=== PATIENT | female | born 1950 | race Hispanic/Latino ===

== ENCOUNTER 2019-05-06 17:30 | Emergency (ER) | payer OTHER, MEDICARE ==
[2019-05-06 18:03] LABS: BASOPHILS % (AUTO) 0.9 % (0.0-5.0); EOSINOPHILS % (AUTO) 2.1 % (0.0-8.0); HEMATOCRIT 39.6 % (36-48); LYMPHOCYTES % (AUTO) 37.2 % (21.0-51.0); MEAN CORPUSCULAR HEMOGLOBIN 28.8 pg (27.0-33.0); MEAN CORPUSCULAR HGB CONC 32.8 g/dL (32.0-36.0); MEAN CORPUSCULAR VOLUME 87.8 fL (79-99); MONOCYTES % (AUTO) 5.6 % (3.0-13.0); NEUTROPHILS % (AUTO) 53.9 % (40.0-77.0); PLATELET COUNT (AUTO) 287 K/uL (130-400); RED BLOOD CELL COUNT(AUTO) 4.51 MIL/uL (4.00-5.50); RED CELL DISTRIBUTION WIDTH 12.6 % (11.0-15.5); WHITE BLOOD COUNT (AUTO) 7.5 K/uL (4.8-10.8)
[2019-05-06 18:16] LABS: CREATININE 0.7 mg/dL (0.5-1.5); POTASSIUM 3.8 mmol/L (3.5-5.1)
[2019-05-06 18:21] LABS: BILIRUBIN,TOTAL 0.3 mg/dL (0.2-1.0); TOTAL PROTEIN, SERUM 8.8 g/dL (6.0-8.3)
[2019-05-06 21:21] LABS: INR 0.92 (0.85-1.15); PARTIAL THROMBOPLASTIN TIME 29.3 SEC (26.3-35.5)
[2019-05-06] MEDS ORDERED: CEFTRIAXONE SODIUM 1 GM ONE (21:50)
[2019-05-06 21:55] LABS: APPEARANCE,URINE Clear (CLEAR); BILIRUBIN,URINE Negative (NEGATIVE); COLOR,URINE Yellow (YELLOW); GLUCOSE, URINE (UA) Negative (NEGATIVE); KETONES,URINE Negative (NEGATIVE); LEUKOCYTE ESTERASE ,URINE Trace (NEGATIVE); NITRATE,URINE Negative (NEGATIVE); OCCULT BLOOD,URINE Negative (NEGATIVE); PH,URINE 8.5 (5.0-8.0); PROTEIN,URINE Negative (NEGATIVE); UROBILINOGEN,URINE 0.2 mg/dL (0.2-1.0)
[2019-05-06 22:04] LABS: BACTERIA,URINE Rare /HPF (None Seen); RBC,URINE 0-1 /HPF (0-1); SQUAMOUS EPITHELIAL CELL,UR Rare /HPF (0-2)
== END 2019-05-06 22:44 | disposition home or self-care (01) ==
LOC: EDH 17:30
DX: L03.113 Cellulitis of right upper limb (principal); I10 Essential (primary) hypertension; G20 Parkinson's disease; E78.00 Pure hypercholesterolemia, unspecified
CPT/HCPCS: 36415; 71045; 80053; 81001; 82550; 82948; 83880; 84443; 84484; 85025; 85610; 85730; 93005; 96374; 99285; J0696

== ENCOUNTER 2019-06-15 11:34 | Inpatient (IN) | payer OTHER, MEDICARE ==
[~2019-06-15] VITALS: Ht 157.5 cm; Wt 68.0 kg
[2019-06-15 11:57] LABS: BASOPHILS % (AUTO) 0.9 % (0.0-5.0); EOSINOPHILS % (AUTO) 1.3 % (0.0-8.0); HEMATOCRIT 37.8 % (36-48); MEAN CORPUSCULAR HEMOGLOBIN 29.1 pg (27.0-33.0); MEAN CORPUSCULAR HGB CONC 33.3 g/dL (32.0-36.0); MEAN CORPUSCULAR VOLUME 87.3 fL (79-99); MONOCYTES % (AUTO) 5.2 % (3.0-13.0); NEUTROPHILS % (AUTO) 63.5 % (40.0-77.0); PLATELET COUNT (AUTO) 286 K/uL (130-400); RED BLOOD CELL COUNT(AUTO) 4.33 MIL/uL (4.00-5.50); RED CELL DISTRIBUTION WIDTH 12.6 % (11.0-15.5); WHITE BLOOD COUNT (AUTO) 6.8 K/uL (4.8-10.8)
[2019-06-15 12:19] LABS: CREATININE 0.6 mg/dL (0.5-1.5); POTASSIUM 3.9 mmol/L (3.5-5.1)
[2019-06-15 12:24] LABS: ALBUMIN 3.9 g/dL (3.5-5.0); BILIRUBIN,TOTAL 0.2 mg/dL (0.2-1.0); TOTAL PROTEIN, SERUM 8.1 g/dL (6.0-8.3)
[2019-06-15 13:34] LABS: APPEARANCE,URINE Clear (CLEAR); BILIRUBIN,URINE Negative (NEGATIVE); COLOR,URINE Yellow (YELLOW); GLUCOSE, URINE (UA) Negative (NEGATIVE); KETONES,URINE Negative (NEGATIVE); LEUKOCYTE ESTERASE ,URINE Trace (NEGATIVE); NITRATE,URINE Negative (NEGATIVE); OCCULT BLOOD,URINE Negative (NEGATIVE); PROTEIN,URINE Negative (NEGATIVE)
[2019-06-15 13:54] LABS: BACTERIA,URINE Few /HPF (None Seen); SQUAMOUS EPITHELIAL CELL,UR Few /HPF (0-2); WBC,URINE 0-1 /HPF (0-1)
[2019-06-15] MEDS ORDERED: ASPIRIN 81MG TAB.CHEW PO SCH (15:00)
[2019-06-15] MEDS: ATORVASTATIN CALCIUM 20 MG TABLET PO SCH (15:00)
[2019-06-15] MEDS ORDERED: NITROGLYCERIN 0.4 MG SL TAB SL PRN (15:15)
[2019-06-15] MEDS ORDERED: ACETAMINOPHEN 325 MG TAB PO PRN (15:15)
[2019-06-15] MEDS ORDERED: ONDANSETRON HCL 4 MG/2 ML VIAL IV PRN (15:15)
[2019-06-15] MEDS ORDERED: ASPIRIN 81MG TAB.CHEW ONE (15:56)
[2019-06-15 16:04] LABS: THYROID STIMULATING HORMONE 0.99 uIU/mL (0.36-3.74)
[2019-06-15] MEDS ORDERED: IOHEXOL-350 75 ML VIAL IV ONE (16:11)
[2019-06-15 16:55] VITALS: BP 160/75
[2019-06-15 19:53] VITALS: BP 152/64
[2019-06-15] MEDS: ATORVASTATIN CALCIUM 40 MG TABLET PO SCH (20:17)
[2019-06-15] MEDS: FAMOTIDINE/PF 20 MG/2 ML VIAL IV SCH (20:17)
[2019-06-15 23:40] VITALS: BP 127/54
[2019-06-16 03:57] VITALS: BP 157/74
[2019-06-16 04:12] LABS: BASOPHILS % (AUTO) 0.9 % (0.0-5.0); EOSINOPHILS % (AUTO) 2.6 % (0.0-8.0); HEMATOCRIT 34.8 % (36-48); LYMPHOCYTES % (AUTO) 36.3 % (21.0-51.0); MEAN CORPUSCULAR HEMOGLOBIN 28.6 pg (27.0-33.0); MEAN CORPUSCULAR HGB CONC 32.8 g/dL (32.0-36.0); MEAN CORPUSCULAR VOLUME 87.2 fL (79-99); MONOCYTES % (AUTO) 6.6 % (3.0-13.0); NEUTROPHILS % (AUTO) 53.4 % (40.0-77.0); PLATELET COUNT (AUTO) 275 K/uL (130-400); RED BLOOD CELL COUNT(AUTO) 3.99 MIL/uL (4.00-5.50); RED CELL DISTRIBUTION WIDTH 12.6 % (11.0-15.5); WHITE BLOOD COUNT (AUTO) 5.5 K/uL (4.8-10.8)
[2019-06-16 04:35] LABS: ALBUMIN 3.3 g/dL (3.5-5.0); BILIRUBIN,TOTAL 0.4 mg/dL (0.2-1.0); CREATININE 0.6 mg/dL (0.5-1.5); POTASSIUM 3.5 mmol/L (3.5-5.1); TOTAL PROTEIN, SERUM 7.1 g/dL (6.0-8.3)
--- NOTE | 2019-06-16 05:11 | NUR ---
PAGED [phone]: hospitalist paged at this time by community engagement specialist. pending call back 0510: Hospitalist FINAL OPERATIONS TECHNICIAN, AJ, returned called. informed of potassium-3.5. TO to initiate hypokalemia protocol.
[2019-06-16] MEDS ORDERED: POTASSIUM CHLORIDE 20 MEQ ERTAB PO PRN (05:15)
[2019-06-16] MEDS ORDERED: POTASSIUM CHLORIDE 20MEQ/100ML 100 ML IV PRN (05:15)
[2019-06-16] MEDS ORDERED: LIDOCAINE HCL-MPF 1% 2ML VIAL IV PRN (05:15)
[2019-06-16] MEDS: POTASSIUM CHLORIDE 10% ELIXIR 20 MEQ/15 ML UDCUP PO PRN ×2 (05:39→17:02)
[2019-06-16 08:00] VITALS: BP 147/66
[2019-06-16] MEDS: FAMOTIDINE/PF 20 MG/2 ML VIAL IV SCH ×2 (08:50→20:48)
[2019-06-16] MEDS: ASPIRIN 81MG TAB.CHEW PO SCH (08:50)
--- NOTE | 2019-06-16 10:15 | NUR ---
NEURO CONSULT DR SULLIVAN ROUNDED ON PATIENT ORDERED PLACED FOR ROPINIROLE 0.25 PO BID, AND LUMBER SPINE WITH CONTRAST.
[2019-06-16] MEDS: ATORVASTATIN CALCIUM 20 MG TABLET PO SCH (10:39)
[2019-06-16] MEDS: ROPINIROLE HCL 0.25 MG TABLET PO SCH ×2 (11:05→20:48)
--- NOTE | 2019-06-16 11:30 | NUR ---
PATIENT BACK FROM MRI OF LUMBAR SPINE .
[2019-06-16 11:39] VITALS: BP 149/68
--- NOTE | 2019-06-16 11:45 | NUR ---
DYSPHAGIA EVAL COMPLETED. NO S/S OF ASPIRATION. RECOMMEND MECHANICAL SOFT/CHOPPED, THIN LIQUIDS, PILLS WHOLE WITH LIQUIDS. COMPUTER SECURITY COORDINATOR COORDINATED WITH NURSE RENDON. Pt WAS EDUCATED ON RISKS AND CONSEQUENCES OF ASPIRATION. ALL QUESTIONS ANSWERED AT THIS TIME. Addendum: 06/16/[address] AISHA SIEGEL Amended: Links added.
[2019-06-16 16:00] VITALS: BP 135/62
--- NOTE | 2019-06-16 16:42 | NUR ---
SPOKE W PATIENT ON THE PHONE STATES LIVES ALONE, HAS PROVIDER SERVICES 4 HRS DAILY- HOME SAFE AND ACCESSIBLE, USES ROLLING WALKER, SHOWER CHAIR- FELL 6 MONTHS AGO BUT IS VERY CAREFUL SON [place]IVES [place] AND [place] TRANSPORTATION; DCP IS HOME- DISCUSSED THERAPY PER HH- LAST VISIT TO PRIMARY MD ROSEMARY ROSAS ; WILL NEED TO RETRUN- CAN SEND INFO ON DISCHARGE OT PMD TO SET UP WITH HH /PT IF REQUIRED. VERBALIZED UNDERSTANDING Addendum: 06/16/19 at 1646 by MANUEL CADET RN CM Amended: Links added.
[2019-06-16] MEDS ORDERED: CARB1TAB42 PO (17:16)
[2019-06-16] MEDS ORDERED: ROSU10TA28 PO (17:16)
[2019-06-16] MEDS ORDERED: LISI-613 PO (17:16)
[2019-06-16 20:38] VITALS: BP 135/62
[2019-06-16] MEDS: ATORVASTATIN CALCIUM 40 MG TABLET PO SCH (20:48)
--- NOTE | 2019-06-16 20:50 | NUR ---
MEDS PT JUST HAD A SHOWER, TOLERATED ACTIVITY WELL. SHIFT ASSESSMENT DONE, PLEASE REFER TO CHART. DUE MEDS ADMINISTERED, TOLERATED WELL. KEPT RESTED AND COMFORTABLE IN BED. SCD'S RE-APPLIED TO BLE. CALL LIGHT WITHIN REACH. ENCOURAGED TO REST AND SLEEP. Addendum: 06/16/19 at 2345 by EMERALD AGRAWAL RN RN Amended: Links added.
[2019-06-16 23:28] VITALS: BP 140/61
--- NOTE | 2019-06-17 02:00 | NUR ---
ROUNDS PT RESTING WELL, FAIRLY ASLEEP. NO DISTRESS NOTED. KEPT UNDISTURBED FOR NOW. WILL MONITOR PT. CALL LIGHT WITHIN REACH. BED ALARM KEPT ON.
[2019-06-17 04:00] VITALS: BP 147/52
[2019-06-17 04:47] LABS: BASOPHILS % (AUTO) 0.7 % (0.0-5.0); EOSINOPHILS % (AUTO) 2.4 % (0.0-8.0); HEMATOCRIT 35.9 % (36-48); LYMPHOCYTES % (AUTO) 33.5 % (21.0-51.0); MEAN CORPUSCULAR HEMOGLOBIN 28.4 pg (27.0-33.0); MEAN CORPUSCULAR VOLUME 88.6 fL (79-99); MONOCYTES % (AUTO) 6.5 % (3.0-13.0); NEUTROPHILS % (AUTO) 56.5 % (40.0-77.0); PLATELET COUNT (AUTO) 256 K/uL (130-400); RED BLOOD CELL COUNT(AUTO) 4.05 MIL/uL (4.00-5.50); RED CELL DISTRIBUTION WIDTH 12.6 % (11.0-15.5); WHITE BLOOD COUNT (AUTO) 5.5 K/uL (4.8-10.8)
[2019-06-17 05:09] LABS: ALBUMIN 3.5 g/dL (3.5-5.0); BILIRUBIN,TOTAL 0.4 mg/dL (0.2-1.0); CREATININE 0.7 mg/dL (0.5-1.5); POTASSIUM 4.2 mmol/L (3.5-5.1); TOTAL PROTEIN, SERUM 7.3 g/dL (6.0-8.3)
--- NOTE | 2019-06-17 06:00 | NUR ---
ROUNDS PT RESTING WELL, NO DISTRESS NOTED.NO COMPLAINTS VERBALIZED. KEPT RESTED AND COMFORTABLE IN BED. CALL LIGHT WITHIN REACH. FOR MORE CARE.
[2019-06-17 07:25] VITALS: BP 132/55
[2019-06-17] MEDS: ATORVASTATIN CALCIUM 20 MG TABLET PO SCH (07:35)
[2019-06-17] MEDS: ROPINIROLE HCL 0.25 MG TABLET PO SCH (09:44)
[2019-06-17] MEDS: FAMOTIDINE/PF 20 MG/2 ML VIAL IV SCH (09:44)
[2019-06-17] MEDS: ASPIRIN 81MG TAB.CHEW PO SCH (09:45)
--- NOTE | 2019-06-17 09:47 | NUR ---
DR NATE SULLIVAN ROUNDED ON PATIENT ,NO NEW ORDERS RECEIVED , PATIENT CLEAR FROM HIS SERVICE FOR DISCHARGE AND FOLLOW-UP WITH HIM IN 2-4 WEEKS
[2019-06-17 10:44] VITALS: BP 122/66
--- NOTE | 2019-06-17 11:40 | NUR ---
FOLLOW UP COMPLETED. CUSHION PADDER COORDINATED WITH NURSE JUSTICE. Pt CURRENTLY TOLERATING DIET RECOMMENDATION WITH NO S/S OF ASPIRATION. Addendum: 06/17/[address] ROBBIN Amended: Links added.
--- NOTE | 2019-06-17 15:27 | NUR ---
FOLLOW UP APPOINTMENT WITH DR. RILEY SUNDAY 4 PM SET UP PER NICK SPOKE TO PATIENT AT LENGTH ABOUT BEING COMPLIANT WITH MEDS. WILL SEND ALL INFO TO DR. RILEY RE FINDINGS AND PT NOTES , FOR POSSIBLE DC TODAY Addendum: 06/17/19 at 1530 by MANUEL CADET RN CM Amended: Links added.
[2019-06-17 15:46] VITALS: BP 151/78
[2019-06-17] MEDS ORDERED: ATOR40TA69 PO (17:29)
[2019-06-17] MEDS ORDERED: ROPI0.257 PO (17:29)
[2019-06-17] MEDS ORDERED: ASPI-1005 PO (17:32)
--- NOTE | 2019-06-17 20:00 | NUR ---
PATIENT GIVEN DISCHARGE INSTRUCTIONS AND VERBALIZED UNDERSTANDING , MONITORING UNIT NOTIFIED AND TELEMETRY UNIT REMOVED , IV REMOVED WITH CATHETER INTACT AND SITE DRESSED, REVIEWED MEDICATIONS AND FOLLOW-UP APPOINTMENT, PATIENT DENIES PAIN AND NO QUESTIONS OR CONCERNS VOICED AT THIS TIME . PATIENT BELONGINGS GATHER AND PATIENT HAD CALLED SON. SON WAITING DOWNSTAIRS OUTSIDE ER. PATIENT TAKING BY WHEELCHAIR TO ER AREA TO LEAVE WITH SON FOR HOME.
== END 2019-06-17 19:30 | disposition home or self-care (01) | DRG 948 ==
LOC: EDH 11:34 → EDHIP 15:06 → 4BH 16:48
PROVIDERS: ADMIT Internal Medicine; ATTEND Internal Medicine
DX: R53.1 Weakness (principal); G20 Parkinson's disease; E11.9 Type 2 diabetes mellitus without complications; I10 Essential (primary) hypertension; E78.5 Hyperlipidemia, unspecified; R53.81 Other malaise; M48.00 Spinal stenosis, site unspecified; Z91.81 History of falling; Z90.710 Acquired absence of both cervix and uterus; Z91.14 Patient's other noncompliance with medication regimen; Z91.19 Patient's noncompliance with other medical treatment and regimen
CPT/HCPCS: 36415; 70450; 70496; 70498; 70551; 72148; 80053; 80061; 81001; 82948; 83036; 84443; 85025; 92610; 93005; 93356; 97039; C8929; G0378; J3490; Q9967

== ENCOUNTER 2019-11-27 18:22 | Emergency (ER) | payer OTHER, MEDICARE ==
[~2019-11-27 18:22] MED LIST: ASPI-1005 PO; ATOR40TA69 PO; LISI-613 PO; ROPI0.257 PO
[2019-11-27] MEDS ORDERED: SODIUM CHLORIDE 0.9% 1000ML 1,000 ML IV ONE (18:23)
[2019-11-27 19:02] LABS: BASOPHILS % (AUTO) 0.9 % (0.0-5.0); EOSINOPHILS % (AUTO) 2.6 % (0.0-8.0); HEMATOCRIT 37.9 % (36-48); LYMPHOCYTES % (AUTO) 33.5 % (21.0-51.0); MEAN CORPUSCULAR HEMOGLOBIN 28.7 pg (27.0-33.0); MEAN CORPUSCULAR HGB CONC 32.7 g/dL (32.0-36.0); MEAN CORPUSCULAR VOLUME 87.7 fL (79-99); NEUTROPHILS % (AUTO) 55.9 % (40.0-77.0); PLATELET COUNT (AUTO) 262 K/uL (130-400); RED BLOOD CELL COUNT(AUTO) 4.32 MIL/uL (4.00-5.50); RED CELL DISTRIBUTION WIDTH 13.1 % (11.0-15.5); WHITE BLOOD COUNT (AUTO) 6.9 K/uL (4.8-10.8)
[2019-11-27 19:12] LABS: CREATININE 0.6 mg/dL (0.5-1.5); POTASSIUM 3.8 mmol/L (3.5-5.1)
[2019-11-27 19:17] LABS: ALBUMIN 3.9 g/dL (3.5-5.0); BILIRUBIN,TOTAL 0.3 mg/dL (0.2-1.0); TOTAL PROTEIN, SERUM 8.2 g/dL (6.0-8.3)
[2019-11-27 19:35] LABS: INR 0.92 (0.85-1.15); PARTIAL THROMBOPLASTIN TIME 27.3 SEC (26.3-35.5)
== END 2019-11-28 00:27 | disposition home or self-care (01) ==
LOC: EDH 18:22
DX: G20 Parkinson's disease (principal); M62.81 Muscle weakness (generalized); I10 Essential (primary) hypertension
CPT/HCPCS: 36415; 70450; 80053; 82550; 84484; 85025; 85610; 85730; 93005; 96360; 99285; J7030

== ENCOUNTER 2020-03-23 13:38 | Observation (INO) | payer OTHER, MEDICARE ==
[~2020-03-23] VITALS: Ht 157.5 cm; Wt 68.0 kg
[~2020-03-23 13:38] MED LIST changes: -LISI-613 PO; +LISI20TA24 PO
[2020-03-23 14:41] LABS: BASOPHILS % (AUTO) 0.7 % (0.0-5.0); EOSINOPHILS % (AUTO) 1.4 % (0.0-8.0); LYMPHOCYTES % (AUTO) 22.7 % (21.0-51.0); MEAN CORPUSCULAR HEMOGLOBIN 28.9 pg (27.0-33.0); MEAN CORPUSCULAR HGB CONC 32.9 g/dL (32.0-36.0); MEAN CORPUSCULAR VOLUME 87.6 fL (79-99); MONOCYTES % (AUTO) 4.9 % (3.0-13.0); PLATELET COUNT (AUTO) 278 K/uL (130-400); RED BLOOD CELL COUNT(AUTO) 3.88 MIL/uL (4.00-5.50); RED CELL DISTRIBUTION WIDTH 13.2 % (11.0-15.5); WHITE BLOOD COUNT (AUTO) 7.3 K/uL (4.8-10.8)
[2020-03-23 14:51] LABS: CREATININE 0.5 mg/dL (0.5-1.5); POTASSIUM 3.6 mmol/L (3.5-5.1)
[2020-03-23 14:56] LABS: ALBUMIN 3.6 g/dL (3.5-5.0); BILIRUBIN,TOTAL 0.3 mg/dL (0.2-1.0); TOTAL PROTEIN, SERUM 7.9 g/dL (6.0-8.3)
[2020-03-23 15:15] LABS: B-TYPE NATRIURETIC PEPTIDE 29 pg/mL (0-100)
[2020-03-23] MEDS ORDERED: ASPIRIN 325 MG TABLET ONE (15:41)
[2020-03-23] MEDS ORDERED: LIDOCAINE HCL-MPF 1% 2ML VIAL IV PRN (16:45)
[2020-03-23] MEDS ORDERED: GLUCAGON 1MG KIT 1 MG ML IM PRN (16:45)
[2020-03-23] MEDS: ENOXAPARIN SODIUM 40 MG/0.4 ML SYRINGE SQ SCH (16:45)
[2020-03-23] MEDS ORDERED: POTASSIUM CHLORIDE 20MEQ/100ML 100 ML IV PRN (16:45)
[2020-03-23] MEDS ORDERED: ACETAMINOPHEN 325 MG TAB PO PRN (16:45)
[2020-03-23] MEDS ORDERED: ONDANSETRON HCL 4 MG/2 ML VIAL IVP PRN (16:45)
[2020-03-23] MEDS: NITROGLYCERIN 1GM/1 INCH PACKET TD SCH (16:45)
[2020-03-23] MEDS ORDERED: DEXTROSE 50%-WATER 50 ML DISP.SYRIN IV PRN (16:45)
[2020-03-23] MEDS ORDERED: MAGNESIUM 2GM PREMIX 50ML 50 ML IV PRN (16:45)
[2020-03-23] MEDS: INSULIN HUMULIN R 100 UNIT/ML 3ML SQ SCH (21:00)
[2020-03-24] MEDS: NITROGLYCERIN 1GM/1 INCH PACKET TD SCH ×3 (00:45→16:45)
[2020-03-24 03:41] LABS: HEMATOCRIT 29.9 % (36-48); MEAN CORPUSCULAR HEMOGLOBIN 28.7 pg (27.0-33.0); MEAN CORPUSCULAR HGB CONC 32.8 g/dL (32.0-36.0); MEAN CORPUSCULAR VOLUME 87.4 fL (79-99); RED BLOOD CELL COUNT(AUTO) 3.42 MIL/uL (4.00-5.50); RED CELL DISTRIBUTION WIDTH 13.4 % (11.0-15.5); WHITE BLOOD COUNT (AUTO) 6.9 K/uL (4.8-10.8)
[2020-03-24 03:50] LABS: CREATININE 0.6 mg/dL (0.5-1.5); MAGNESIUM 1.7 mg/dL (1.80-2.40)
[2020-03-24] MEDS ORDERED: POTASSIUM CHLORIDE 20MEQ/100ML 100 ML IV ONE ×2 (05:55→08:27)
[2020-03-24] MEDS ORDERED: MAGNESIUM 2GM PREMIX 50ML 50 ML IV ONE (05:55)
[2020-03-24] MEDS ORDERED: LIDOCAINE HCL-MPF 1% 2ML VIAL ONE ×2 (06:04→08:34)
[2020-03-24] MEDS: INSULIN HUMULIN R 100 UNIT/ML 3ML SQ SCH ×4 (07:30→21:00)
[2020-03-24] MEDS: ENOXAPARIN SODIUM 40 MG/0.4 ML SYRINGE SQ SCH (09:00)
[2020-03-24] MEDS: PANTOPRAZOLE SODIUM 40 MG TABLET.DR PO SCH (09:00)
[2020-03-24] MEDS ORDERED: ENOXAPARIN SODIUM 40 MG/0.4 ML SYRINGE SQ ONE (09:17)
[2020-03-24] MEDS ORDERED: VIT1CAPS26 PO (21:26)
[2020-03-24 22:52] VITALS: BP 117/45
[2020-03-24 23:44] VITALS: BP 120/57
[2020-03-25] MEDS: NITROGLYCERIN 1GM/1 INCH PACKET TD SCH ×2 (01:35→12:05)
[2020-03-25 01:36] VITALS: BP 131/62
[2020-03-25 03:52] VITALS: BP 112/58
[2020-03-25 04:43] LABS: HEMATOCRIT 30.6 % (36-48); MEAN CORPUSCULAR HEMOGLOBIN 28.6 pg (27.0-33.0); MEAN CORPUSCULAR HGB CONC 32.4 g/dL (32.0-36.0); MEAN CORPUSCULAR VOLUME 88.4 fL (79-99); RED BLOOD CELL COUNT(AUTO) 3.46 MIL/uL (4.00-5.50); RED CELL DISTRIBUTION WIDTH 13.4 % (11.0-15.5); WHITE BLOOD COUNT (AUTO) 6.3 K/uL (4.8-10.8)
[2020-03-25 05:00] LABS: CREATININE 0.5 mg/dL (0.5-1.5); POTASSIUM 3.5 mmol/L (3.5-5.1)
[2020-03-25] MEDS: INSULIN HUMULIN R 100 UNIT/ML 3ML SQ SCH ×2 (06:20→11:30)
[2020-03-25 08:00] VITALS: BP 126/60
[2020-03-25] MEDS ORDERED: PANT40TA PO (11:05)
[2020-03-25 12:00] VITALS: BP 137/68
[2020-03-25] MEDS: PANTOPRAZOLE SODIUM 40 MG TABLET.DR PO SCH (12:05)
== END 2020-03-25 16:05 | disposition home or self-care (01) ==
LOC: EDH 13:38 → EDHIP 16:43 → 4DH 03-24 22:27
PROVIDERS: ADMIT Internal Medicine Pulmonary Disease; ATTEND Internal Medicine Pulmonary Disease
DX: R07.89 Other chest pain (principal); Z20.822 Contact with and (suspected) exposure to COVID-19; I10 Essential (primary) hypertension; E78.5 Hyperlipidemia, unspecified; G20 Parkinson's disease; E78.00 Pure hypercholesterolemia, unspecified; M25.552 Pain in left hip; Z87.891 Personal history of nicotine dependence; Z79.82 Long term (current) use of aspirin; Z79.899 Other long term (current) drug therapy
CPT/HCPCS: 36415 ×3; 71045; 73502; 80048 ×2; 80053; 82948 ×6; 83735 ×2; 83880; 84132; 84484 ×3; 85025; 85027 ×2; 87426; 93005; 93306; 93356; 99285; G0378 ×47; J1650 ×2; J3475; J3480 ×2; J3490 ×2; U0003

== ENCOUNTER 2020-04-25 06:47 | Emergency (ER) | payer OTHER, MEDICARE ==
[~2020-04-25 06:47] MED LIST changes: +PANT40TA PO; +VIT1CAPS26 PO
[2020-04-25] MEDS ORDERED: ACETAMINOPHEN 325 MG TAB ONE (08:17)
[2020-04-25 08:25] LABS: BASOPHILS % (AUTO) 0.6 % (0.0-5.0); EOSINOPHILS % (AUTO) 1.2 % (0.0-8.0); HEMATOCRIT 36.5 % (36-48); LYMPHOCYTES % (AUTO) 23.4 % (21.0-51.0); MEAN CORPUSCULAR HGB CONC 32.6 g/dL (32.0-36.0); MONOCYTES % (AUTO) 5.9 % (3.0-13.0); NEUTROPHILS % (AUTO) 68.6 % (40.0-77.0); PLATELET COUNT (AUTO) 264 K/uL (130-400); RED CELL DISTRIBUTION WIDTH 12.7 % (11.0-15.5); WHITE BLOOD COUNT (AUTO) 7.8 K/uL (4.8-10.8)
[2020-04-25 08:34] LABS: CREATININE 0.7 mg/dL (0.5-1.5); POTASSIUM 4.1 mmol/L (3.5-5.1)
[2020-04-25 08:38] LABS: ALBUMIN 3.8 g/dL (3.5-5.0); BILIRUBIN,TOTAL 0.3 mg/dL (0.2-1.0); MAGNESIUM 1.9 mg/dL (1.80-2.40)
== END 2020-04-25 09:38 | disposition home or self-care (01) ==
LOC: EDH 06:47
DX: G20 Parkinson's disease (principal); R25.2 Cramp and spasm; I10 Essential (primary) hypertension; E78.00 Pure hypercholesterolemia, unspecified
CPT/HCPCS: 36415; 80053; 83735; 85025; 93005

== ENCOUNTER 2020-07-21 14:20 | Observation (INO) | payer OTHER, MEDICARE ==
[~2020-07-21] VITALS: Ht 157.5 cm; Wt 67.1 kg
[2020-07-21 14:22] VITALS: BP 179/58
[2020-07-21 15:30] LABS: APPEARANCE,URINE Clear (CLEAR); BILIRUBIN,URINE Negative (NEGATIVE); COLOR,URINE Yellow (YELLOW); GLUCOSE, URINE (UA) TRACE mg/dL (NEGATIVE); KETONES,URINE Negative (NEGATIVE); LEUKOCYTE ESTERASE ,URINE Trace (NEGATIVE); NITRATE,URINE Negative (NEGATIVE); OCCULT BLOOD,URINE Negative (NEGATIVE); PROTEIN,URINE Trace mg/dL (NEGATIVE)
[2020-07-21 15:50] LABS: BACTERIA,URINE Moderate /HPF (None Seen); MUCUS,URINE Many LPF (None Seen); SQUAMOUS EPITHELIAL CELL,UR Many /HPF (0-2)
[2020-07-21 16:08] LABS: BASOPHILS % (AUTO) 0.8 % (0.0-5.0); EOSINOPHILS % (AUTO) 2.2 % (0.0-8.0); HEMATOCRIT 36.9 % (36-48); LYMPHOCYTES % (AUTO) 33.6 % (21.0-51.0); MEAN CORPUSCULAR HEMOGLOBIN 28.9 pg (27.0-33.0); MEAN CORPUSCULAR VOLUME 90.4 fL (79-99); MONOCYTES % (AUTO) 6.4 % (3.0-13.0); NEUTROPHILS % (AUTO) 56.7 % (40.0-77.0); PLATELET COUNT (AUTO) 257 K/uL (130-400); RED BLOOD CELL COUNT(AUTO) 4.08 MIL/uL (4.00-5.50); RED CELL DISTRIBUTION WIDTH 13.4 % (11.0-15.5); WHITE BLOOD COUNT (AUTO) 6.4 K/uL (4.8-10.8)
[2020-07-21 16:18] LABS: CREATININE 0.5 mg/dL (0.5-1.5); POTASSIUM 4.2 mmol/L (3.5-5.1)
[2020-07-21 16:23] LABS: ALBUMIN 3.7 g/dL (3.5-5.0); BILIRUBIN,TOTAL 0.3 mg/dL (0.2-1.0)
[2020-07-21 17:59] VITALS: BP 183/57
[2020-07-21] MEDS ORDERED: NITROGLYCERIN 0.4 MG SL TAB SL PRN (18:45)
[2020-07-21] MEDS ORDERED: MAG/ALUM/SIMETH 30 ML UDCUP PO PRN (18:45)
[2020-07-21] MEDS ORDERED: LACTULOSE 20 GM/30 ML UDCUP PO PRN (18:45)
[2020-07-21] MEDS ORDERED: BENZONATATE 100 MG CAPSULE PO PRN (18:45)
[2020-07-21] MEDS ORDERED: ACETAMINOPHEN 325 MG TAB PO PRN ×2 (18:45)
[2020-07-21] MEDS ORDERED: ONDANSETRON 4MG INJ IV PRN (18:45)
[2020-07-21] MEDS ORDERED: IOHEXOL 350 MG/ML 100ML INFUS..BTL IV ONE (19:00)
[2020-07-22] VITALS (8 sets, daily range): BP systolic 149–206; BP diastolic 48–78
[2020-07-22] MEDS ORDERED: CEFTRIAXONE 1G VIAL IVP SCH (06:00)
[2020-07-22 06:25] LABS: HEMATOCRIT 35.1 % (36-48); MEAN CORPUSCULAR HEMOGLOBIN 28.8 pg (27.0-33.0); MEAN CORPUSCULAR HGB CONC 32.8 g/dL (32.0-36.0); PLATELET COUNT (AUTO) 260 K/uL (130-400); RED BLOOD CELL COUNT(AUTO) 3.99 MIL/uL (4.00-5.50); RED CELL DISTRIBUTION WIDTH 13.2 % (11.0-15.5); WHITE BLOOD COUNT (AUTO) 5.7 K/uL (4.8-10.8)
[2020-07-22 06:39] LABS: ALBUMIN 3.5 g/dL (3.5-5.0); BILIRUBIN,TOTAL 0.5 mg/dL (0.2-1.0); CREATININE 0.5 mg/dL (0.5-1.5); POTASSIUM 3.4 mmol/L (3.5-5.1); TOTAL PROTEIN, SERUM 7.2 g/dL (6.0-8.3)
[2020-07-22 07:05] LABS: BASOPHILS % (MANUAL) 1 % (0-2); EOSINOPHILS % (MANUAL) 3 % (1-6); LYMPHOCYTES % (MANUAL) 29 % (22-44); MAN.DIFF COMMENT-IMPRESSION MANUAL DIFFERENTIAL; MONOCYTES % (MANUAL) 3 % (2-9); PLATELET MORPHOLOGY COMMENT ADEQUATE; SEGMENTED NEUTROPHILS % 64 % (40-70)
[2020-07-22] MEDS ORDERED: FAMOTIDINE 20MG VIAL IV SCH (09:00)
[2020-07-22] MEDS ORDERED: CARBIDOPA-LEVODOPA 25-100 TAB PO SCH (09:01)
[2020-07-22] MEDS ORDERED: MAGNESIUM CITRATE 296 ML SOLUTION PO SCH (10:15)
[2020-07-22] MEDS ORDERED: DEXTROSE 50%-WATER 50 ML DISP.SYRIN IV PRN (10:15)
[2020-07-22] MEDS ORDERED: GLUCAGON 1MG KIT 1 MG ML IM PRN (10:15)
[2020-07-22] MEDS ORDERED: POTASSIUM CHLORIDE 20MEQ/100ML 100 ML IV PRN (10:15)
[2020-07-22] MEDS ORDERED: LISINOPRIL 20 MG TABLET PO SCH (10:15)
[2020-07-22] MEDS ORDERED: LIDOCAINE HCL-MPF 1% 2ML VIAL IV PRN (10:15)
[2020-07-22] MEDS ORDERED: KCL 20 MEQ ERTAB PO PRN (10:15)
[2020-07-22] MEDS ORDERED: ROPINIROLE HCL 0.25 MG TABLET PO SCH (10:16)
[2020-07-22] MEDS ORDERED: PANTOPRAZOLE 40 MG TAB DR PO SCH (10:16)
[2020-07-22] MEDS ORDERED: Vitamin B Complex/Vit C/Folic Acid PO SCH (10:18)
[2020-07-22] MEDS ORDERED: ASPIRIN 81MG CHEW TAB PO SCH (10:19)
[2020-07-22] MEDS: POTASSIUM CHLORIDE 10% ELIXIR 20 MEQ/15 ML UDCUP PO PRN ×2 (10:49→13:33)
[2020-07-22] MEDS ORDERED: INSULIN HUMULIN R 100 UNIT/ML 3ML SQ SCH (11:30)
[2020-07-22] MEDS ORDERED: CLONIDINE HCL 0.1 MG TABLET PO PRN (12:30)
[2020-07-22] MEDS ORDERED: CLOPIDOGREL 75MG TAB PO SCH (18:45)
[2020-07-22] MEDS ORDERED: ATORVASTATIN 40 MG TABLET PO SCH (21:00)
[2020-07-22] MEDS ORDERED: CLOP75TA14 PO (21:17)
[2020-07-23] MEDS ORDERED: ASPIRIN 81MG CHEW TAB PO SCH (09:00)
== END 2020-07-22 16:33 | disposition home or self-care (01) ==
LOC: EDH 14:20 → EDHIP 18:29
PROVIDERS: ADMIT Internal Medicine Critical Care Medicine; ATTEND Internal Medicine Critical Care Medicine
DX: G45.9 Transient cerebral ischemic attack, unspecified (principal); G20 Parkinson's disease; I69.354 Hemiplegia and hemiparesis following cerebral infarction affecting left non-dominant side; R35.0 Frequency of micturition; I10 Essential (primary) hypertension; E78.5 Hyperlipidemia, unspecified; E11.51 Type 2 diabetes mellitus with diabetic peripheral angiopathy without gangrene; F80.81 Childhood onset fluency disorder; Z90.710 Acquired absence of both cervix and uterus; Z79.02 Long term (current) use of antithrombotics/antiplatelets; Z79.82 Long term (current) use of aspirin; Z79.899 Other long term (current) drug therapy
CPT/HCPCS: 36415 ×2; 70450; 70496; 70498; 70551; 71045; 80053 ×2; 80061; 81001; 82948 ×2; 84484 ×2; 85025 ×2; 87088; 92522; 92610; 93005; 96374; 96375; 97039; 97161; 99285; G0378 ×21; G8978; G8979; G8980; G8981; G8982; G8983; J0696; J3490; Q9967

== ENCOUNTER 2020-08-28 10:30 | Emergency (ER) | payer OTHER, MEDICARE ==
[~2020-08-28] VITALS: Ht 157.5 cm; Wt 66.2 kg
[~2020-08-28 10:30] MED LIST changes: +CLOP75TA14 PO
[2020-08-28 10:40] VITALS: BP 135/47
[2020-08-28 11:14] LABS: BASOPHILS % (AUTO) 0.8 % (0.0-5.0); CREATININE 0.8 mg/dL (0.5-1.5); EOSINOPHILS % (AUTO) 2.5 % (0.0-8.0); HEMATOCRIT 35.3 % (36-48); LYMPHOCYTES % (AUTO) 20.7 % (21.0-51.0); MEAN CORPUSCULAR HEMOGLOBIN 28.9 pg (27.0-33.0); MEAN CORPUSCULAR HGB CONC 32.3 g/dL (32.0-36.0); MEAN CORPUSCULAR VOLUME 89.6 fL (79-99); MONOCYTES % (AUTO) 5.8 % (3.0-13.0); NEUTROPHILS % (AUTO) 69.9 % (40.0-77.0); PLATELET COUNT (AUTO) 245 K/uL (130-400); POTASSIUM 4.1 mmol/L (3.5-5.1); RED BLOOD CELL COUNT(AUTO) 3.94 MIL/uL (4.00-5.50); RED CELL DISTRIBUTION WIDTH 12.5 % (11.0-15.5); WHITE BLOOD COUNT (AUTO) 6.4 K/uL (4.8-10.8)
[2020-08-28 11:20] LABS: ALBUMIN 3.8 g/dL (3.5-5.0); BILIRUBIN,TOTAL 0.4 mg/dL (0.2-1.0); TOTAL PROTEIN, SERUM 7.8 g/dL (6.0-8.3)
[2020-08-28 11:21] LABS: PROTHROMBIN TIME 10.9 SEC (9.6-11.6)
[2020-08-28 11:22] LABS: PARTIAL THROMBOPLASTIN TIME 28.4 SEC (26.3-35.5)
[2020-08-28 11:34] LABS: B-TYPE NATRIURETIC PEPTIDE 11 pg/mL (0-100)
[2020-08-28 13:00] VITALS: BP 148/46
[2020-08-28 14:20] VITALS: BP 145/38
[2020-08-28 15:07] VITALS: BP 131/38
[2020-08-28 15:16] LABS: APPEARANCE,URINE Clear (CLEAR); BILIRUBIN,URINE Negative (NEGATIVE); COLOR,URINE Yellow (YELLOW); GLUCOSE, URINE (UA) Negative (NEGATIVE); KETONES,URINE Negative (NEGATIVE); LEUKOCYTE ESTERASE ,URINE Trace (NEGATIVE); NITRATE,URINE Negative (NEGATIVE); OCCULT BLOOD,URINE Negative (NEGATIVE); PH,URINE 7.5 (5.0-8.0); PROTEIN,URINE Negative (NEGATIVE)
[2020-08-28 15:30] LABS: RBC,URINE 0-1 /HPF (0-1)
[2020-08-28 15:31] LABS: BACTERIA,URINE Rare /HPF (None Seen); MUCUS,URINE Few LPF (None Seen); SQUAMOUS EPITHELIAL CELL,UR Few /HPF (0-2)
[2020-08-28] MEDS ORDERED: LIDOP TP (21:26)
[2020-08-28 21:39] VITALS: BP 119/51
== END 2020-08-28 21:40 | disposition home or self-care (01) ==
LOC: EDH 10:30
DX: R42 Dizziness and giddiness (principal); T42.8X5A Adverse effect of antiparkinsonism drugs and other central muscle-tone depressants, initial encounter; M62.830 Muscle spasm of back; E11.9 Type 2 diabetes mellitus without complications; G20 Parkinson's disease; I10 Essential (primary) hypertension; Z79.1 Long term (current) use of non-steroidal anti-inflammatories (NSAID); Z79.82 Long term (current) use of aspirin; Z79.899 Other long term (current) drug therapy; Y92.89 Other specified places as the place of occurrence of the external cause
CPT/HCPCS: 36415; 70450; 70544; 70547; 70551; 80053; 81001; 82550; 83880; 84484; 85025; 85610; 85730; 93005

== ENCOUNTER 2020-10-13 17:04 | Observation (INO) | payer OTHER, MEDICARE ==
[~2020-10-13] VITALS: Ht 157.5 cm; Wt 67.0 kg
[~2020-10-13 17:04] MED LIST changes: +LIDOP TP
[2020-10-13 17:31] VITALS: BP 142/44
[2020-10-13 17:43] LABS: BASOPHILS % (AUTO) 0.9 % (0.0-5.0); HEMATOCRIT 32.5 % (36-48); LYMPHOCYTES % (AUTO) 30.1 % (21.0-51.0); MEAN CORPUSCULAR HEMOGLOBIN 28.8 pg (27.0-33.0); MEAN CORPUSCULAR HGB CONC 32.3 g/dL (32.0-36.0); MEAN CORPUSCULAR VOLUME 89.3 fL (79-99); MONOCYTES % (AUTO) 8.3 % (3.0-13.0); NEUTROPHILS % (AUTO) 56.5 % (40.0-77.0); PLATELET COUNT (AUTO) 282 K/uL (130-400); RED BLOOD CELL COUNT(AUTO) 3.64 MIL/uL (4.00-5.50); RED CELL DISTRIBUTION WIDTH 13.9 % (11.0-15.5); WHITE BLOOD COUNT (AUTO) 5.8 K/uL (4.8-10.8)
[2020-10-13 17:55] LABS: CREATININE 0.8 mg/dL (0.5-1.5); POTASSIUM 3.1 mmol/L (3.5-5.1)
[2020-10-13] MEDS ORDERED: MECLIZINE HCL 25 MG TABLET PO ONE (18:00)
[2020-10-13 18:02] LABS: ALBUMIN 3.5 g/dL (3.5-5.0); BILIRUBIN,TOTAL 0.3 mg/dL (0.2-1.0); TOTAL PROTEIN, SERUM 7.4 g/dL (6.0-8.3)
[2020-10-13 18:13] LABS: B-TYPE NATRIURETIC PEPTIDE 59 pg/mL (0-100)
[2020-10-13 18:26] VITALS: BP 126/47
[2020-10-13] MEDS ORDERED: POTASSIUM CHLORIDE 10% ELIXIR 20 MEQ/15 ML UDCUP PO PRN (21:30)
[2020-10-13] MEDS ORDERED: LACTULOSE 20 GM/30 ML UDCUP PO PRN (21:30)
[2020-10-13] MEDS ORDERED: LIDOCAINE HCL-MPF 1% 2ML VIAL IV PRN (21:30)
[2020-10-13] MEDS ORDERED: HYDRALAZINE 20MG/ML VIAL IV PRN (21:30)
[2020-10-13] MEDS ORDERED: ONDANSETRON 4MG INJ IV PRN (21:30)
[2020-10-13] MEDS ORDERED: ACETAMINOPHEN 325 MG TAB PO PRN (21:30)
[2020-10-13] MEDS ORDERED: POTASSIUM CHLORIDE 10MEQ/100ML 100 ML IV PRN (21:30)
[2020-10-13] MEDS ORDERED: NITROGLYCERIN 0.4 MG SL TAB SL PRN (21:30)
[2020-10-13] MEDS ORDERED: KCL 20 MEQ ERTAB PO PRN (21:30)
[2020-10-13] MEDS: 0.9%NACL 1000ML 1,000 ML IV SCH (22:46)
[2020-10-13] MEDS: NITROGLYCERIN 1GM OINT 1 INCH/1GM TD SCH (22:46)
[2020-10-13 23:13] VITALS: BP 143/80
[2020-10-14] VITALS (16 sets, daily range): BP systolic 94–156; BP diastolic 45–111
[2020-10-14 05:11] LABS: BASOPHILS % (AUTO) 0.5 % (0.0-5.0); EOSINOPHILS % (AUTO) 4.5 % (0.0-8.0); HEMATOCRIT 31.7 % (36-48); LYMPHOCYTES % (AUTO) 37.1 % (21.0-51.0); MEAN CORPUSCULAR HEMOGLOBIN 28.6 pg (27.0-33.0); MEAN CORPUSCULAR HGB CONC 31.5 g/dL (32.0-36.0); MEAN CORPUSCULAR VOLUME 90.6 fL (79-99); MONOCYTES % (AUTO) 7.4 % (3.0-13.0); NEUTROPHILS % (AUTO) 50.3 % (40.0-77.0); PLATELET COUNT (AUTO) 257 K/uL (130-400); RED CELL DISTRIBUTION WIDTH 14.1 % (11.0-15.5); WHITE BLOOD COUNT (AUTO) 5.6 K/uL (4.8-10.8)
[2020-10-14 05:27] LABS: HEMOGLOBIN A1C 5.7 % (4.0-6.0)
[2020-10-14] MEDS: NITROGLYCERIN 1GM OINT 1 INCH/1GM TD SCH ×3 (05:46→21:19)
[2020-10-14 06:05] LABS: CREATININE 0.7 mg/dL (0.5-1.5); MAGNESIUM 2.1 mg/dL (1.80-2.40); PHOSPHORUS 2.7 mg/dL (2.5-4.9); POTASSIUM 3.5 mmol/L (3.5-5.1); THYROID STIMULATING HORMONE 1.45 uIU/mL (0.36-3.74)
[2020-10-14] MEDS: INSULIN HUMULIN R 100 UNIT/ML 3ML SQ SCH ×4 (06:48→20:54)
[2020-10-14] MEDS: FAMOTIDINE 20MG TAB PO SCH ×2 (09:52→20:54)
[2020-10-14] MEDS: ENOXAPARIN SODIUM 40 MG/0.4 ML SYRINGE SQ SCH (09:58)
[2020-10-14] MEDS: 0.9%NACL 1000ML 1,000 ML IV SCH ×2 (10:50→23:38)
[2020-10-14] MEDS ORDERED: LIDOCAINE 5% TOPICAL PATCH TP PRN (21:00)
[2020-10-14] MEDS ORDERED: MECLIZINE HCL 12.5 MG TABLET PO PRN (21:00)
[2020-10-14] MEDS ORDERED: ATORVASTATIN 40 MG TABLET PO SCH (21:00)
[2020-10-14] MEDS: ROPINIROLE HCL 0.25 MG TABLET PO SCH (21:12)
[2020-10-14 22:14] LABS: APPEARANCE,URINE Clear (CLEAR); BILIRUBIN,URINE Negative (NEGATIVE); COLOR,URINE Yellow (YELLOW); GLUCOSE, URINE (UA) Negative (NEGATIVE); KETONES,URINE Negative (NEGATIVE); LEUKOCYTE ESTERASE ,URINE Small (NEGATIVE); NITRATE,URINE Negative (NEGATIVE); OCCULT BLOOD,URINE Negative (NEGATIVE); PH,URINE 6.5 (5.0-8.0); PROTEIN,URINE Negative (NEGATIVE)
[2020-10-14 22:40] LABS: BACTERIA,URINE None Seen /HPF (None Seen); MUCUS,URINE Rare LPF (None Seen); RBC,URINE None Seen /HPF (0-1); SQUAMOUS EPITHELIAL CELL,UR Few /HPF (0-2); WBC,URINE 0-1 /HPF (0-1)
[2020-10-15 03:54] VITALS: BP_SYST 149; BP_SYST 150; BP_SYST 162; BP_DIAS 41; BP_DIAS 42; BP_DIAS 51
[2020-10-15] MEDS: NITROGLYCERIN 1GM OINT 1 INCH/1GM TD SCH ×2 (05:50→13:30)
[2020-10-15 05:52] LABS: CREATININE 0.6 mg/dL (0.5-1.5); POTASSIUM 3.9 mmol/L (3.5-5.1); THYROID STIMULATING HORMONE 0.91 uIU/mL (0.36-3.74)
[2020-10-15] MEDS: INSULIN HUMULIN R 100 UNIT/ML 3ML SQ SCH ×3 (06:33→16:30)
[2020-10-15 07:30] VITALS: BP_SYST 145; BP_SYST 146; BP_DIAS 43; BP_DIAS 58; BP_DIAS 63
[2020-10-15] MEDS: ENOXAPARIN SODIUM 40 MG/0.4 ML SYRINGE SQ SCH (08:46)
[2020-10-15] MEDS: ROPINIROLE HCL 0.25 MG TABLET PO SCH (08:52)
[2020-10-15] MEDS ORDERED: ASPIRIN 81MG CHEW TAB PO SCH (09:00)
[2020-10-15] MEDS ORDERED: CLOPIDOGREL 75MG TAB PO SCH (09:00)
[2020-10-15] MEDS ORDERED: PANTOPRAZOLE 40 MG TAB DR PO SCH (09:00)
[2020-10-15] MEDS ORDERED: LISINOPRIL 20 MG TABLET PO SCH (09:00)
[2020-10-15 11:00] VITALS: BP 138/55
[2020-10-15 12:27] LABS: CREATININE 0.6 mg/dL (0.5-1.5); POTASSIUM 3.7 mmol/L (3.5-5.1)
[2020-10-15] MEDS ORDERED: MECL-226 PO (15:40)
[2020-10-15 16:00] VITALS: BP 131/47
[2020-10-15 16:57] LABS: CREATININE 0.7 mg/dL (0.5-1.5); POTASSIUM 3.9 mmol/L (3.5-5.1)
== END 2020-10-15 18:45 | disposition home or self-care (01) ==
LOC: EDH 17:04 → EDHIP 21:09 → 3CH 10-14 08:38
PROVIDERS: ADMIT Internal Medicine Critical Care Medicine; ATTEND Internal Medicine Critical Care Medicine
DX: R42 Dizziness and giddiness (principal); R51.9 Headache, unspecified; R06.02 Shortness of breath; I10 Essential (primary) hypertension; R00.1 Bradycardia, unspecified; G20 Parkinson's disease; E66.9 Obesity, unspecified; R77.8 Other specified abnormalities of plasma proteins; E11.9 Type 2 diabetes mellitus without complications; E66.3 Overweight; E78.00 Pure hypercholesterolemia, unspecified; M19.90 Unspecified osteoarthritis, unspecified site; Z79.02 Long term (current) use of antithrombotics/antiplatelets; Z79.899 Other long term (current) drug therapy; Z90.710 Acquired absence of both cervix and uterus; Z79.4 Long term (current) use of insulin; Z79.82 Long term (current) use of aspirin; Z68.27 Body mass index [BMI] 27.0-27.9, adult
CPT/HCPCS: 36415 ×3; 70450; 71045; 72125; 80048 ×4; 80053; 80061; 81001; 82550 ×4; 82948 ×7; 83036; 83735; 83874 ×3; 83880; 84100; 84443 ×2; 84484 ×4; 85025 ×2; 87077; 87088; 87186; 93005 ×4; 96360; 96361 ×2; 96372 ×2; 97116; 97161; 99285; G0378 ×45; J1650 ×2; J7030

== ENCOUNTER 2021-03-29 05:30 | Day surgery (SDC) | payer OTHER, MEDICARE ==
[2021-03-24 14:07] LABS: BASOPHILS % (AUTO) 0.6 % (0.0-5.0); EOSINOPHILS % (AUTO) 1.3 % (0.0-8.0); LYMPHOCYTES % (AUTO) 32.3 % (21.0-51.0); MEAN CORPUSCULAR HGB CONC 30.9 g/dL (32.0-36.0); MEAN CORPUSCULAR VOLUME 90.7 fL (79-99); MONOCYTES % (AUTO) 6.8 % (3.0-13.0); NEUTROPHILS % (AUTO) 58.7 % (40.0-77.0); PLATELET COUNT (AUTO) 273 K/uL (130-400); RED BLOOD CELL COUNT(AUTO) 3.75 MIL/uL (4.00-5.50); RED CELL DISTRIBUTION WIDTH 13.5 % (11.0-15.5); WHITE BLOOD COUNT (AUTO) 7.8 K/uL (4.8-10.8)
[2021-03-24 14:09] LABS: APPEARANCE,URINE Clear (CLEAR); BILIRUBIN,URINE Negative (NEGATIVE); COLOR,URINE Yellow (YELLOW); GLUCOSE, URINE (UA) Negative (NEGATIVE); KETONES,URINE Negative (NEGATIVE); LEUKOCYTE ESTERASE ,URINE Trace (NEGATIVE); NITRATE,URINE Negative (NEGATIVE); OCCULT BLOOD,URINE Negative (NEGATIVE); PROTEIN,URINE Negative (NEGATIVE)
[2021-03-24 14:16] LABS: CREATININE 0.5 mg/dL (0.5-1.5); POTASSIUM 3.6 mmol/L (3.5-5.1)
[2021-03-24 14:18] LABS: INR 0.94 (0.85-1.15); PROTHROMBIN TIME 10.3 SEC (9.6-11.6)
[2021-03-24 14:19] LABS: PARTIAL THROMBOPLASTIN TIME 29.3 SEC (26.3-35.5)
[2021-03-24 14:27] LABS: BACTERIA,URINE Rare /HPF (None Seen); MUCUS,URINE Few LPF (None Seen); RBC,URINE 0-1 /HPF (0-1); SQUAMOUS EPITHELIAL CELL,UR Few /HPF (0-2); WBC,URINE 0-1 /HPF (0-1)
[2021-03-28 13:29] VITALS: BP 160/85
[2021-03-29] VITALS (14 sets, daily range): BP systolic 92–180; BP diastolic 30–66
[~2021-03-29] VITALS: Ht 157.5 cm; Wt 69.0 kg
[~2021-03-29 05:30] MED LIST changes: +ACET1TAB25 PO; -CLOP75TA14 PO; +DICY20TA3 PO; +HYDR12.54 PO; -LIDOP TP; -LISI20TA24 PO; +PANT40TA54 PO; -VIT1CAPS26 PO
[2021-03-29] MEDS ORDERED: 0.9% NACL 500ML IV.SOLN 500 ML IV SCH (06:00)
[2021-03-29] MEDS ORDERED: 0.9%NACL 1000ML 1,000 ML IV ONE (06:51)
[2021-03-29] MEDS ORDERED: NITROGLYCERIN 50MG VIAL ONE ×2 (07:08→07:10)
[2021-03-29] MEDS ORDERED: IOHEXOL 350 MG/ML 100ML INFUS..BTL IV ONE (07:08)
[2021-03-29] MEDS ORDERED: IOHEXOL-350 50ML VIAL IV ONE (07:08)
[2021-03-29] MEDS ORDERED: LIDOCAINE HCL 400MG/20ML VIAL ONE (07:08)
[2021-03-29] MEDS ORDERED: FENTANYL CITRATE PF 50 MCG/1 ML 2ML VIAL ONE (07:42)
[2021-03-29] MEDS ORDERED: MIDAZOLAM HCL 1 MG/ML 2ML VIAL ONE (07:42)
[2021-03-29] MEDS ORDERED: 0.9%NACL 1000ML 1,000 ML IV SCH (08:30)
[2021-03-29] MEDS ORDERED: GLUCAGON 1MG KIT 1 MG ML IM PRN (08:30)
[2021-03-29] MEDS ORDERED: DEXTROSE 50%-WATER 50 ML DISP.SYRIN IV PRN (08:30)
[2021-03-29] MEDS ORDERED: ACETAMINOPHEN 325 MG TAB ONE (11:10)
== END 2021-03-29 13:50 | disposition home or self-care (01) ==
LOC: DAH 05:30
PROVIDERS: ATTEND Internal Medicine
DX: I25.118 Atherosclerotic heart disease of native coronary artery with other forms of angina pectoris (principal); I10 Essential (primary) hypertension; E78.5 Hyperlipidemia, unspecified; G20 Parkinson's disease; E11.9 Type 2 diabetes mellitus without complications; Z86.73 Personal history of transient ischemic attack (TIA), and cerebral infarction without residual deficits; Z82.49 Family history of ischemic heart disease and other diseases of the circulatory system; Z83.3 Family history of diabetes mellitus; Z90.49 Acquired absence of other specified parts of digestive tract; Z98.890 Other specified postprocedural states; Z79.82 Long term (current) use of aspirin; Z79.01 Long term (current) use of anticoagulants; Z79.899 Other long term (current) drug therapy
CPT/HCPCS: 36415; 71045; 80048; 81001; 82948; 85025; 85610; 85730; 93005; 93458; A4215; A4216; A4221; A4222; A4223 ×3; A4335; A4554; A4606; A4663; C1760; C1894 ×2; J1644; J2250; J3010; J3490 ×3; J7030; Q9965; Q9967; 99156; 99157

== ENCOUNTER 2022-04-19 17:38 | Observation (INO) | payer OTHER, MEDICARE ==
[~2022-04-19] VITALS: Ht 157.5 cm; Wt 71.4 kg
[~2022-04-19 17:38] MED LIST changes: +ACET-2079 PO; -ACET1TAB25 PO
[2022-04-19 19:32] LABS: BASOPHILS % (AUTO) 0.6 % (0.0-5.0); EOSINOPHILS % (AUTO) 2.2 % (0.0-8.0); HEMATOCRIT 33.8 % (36-48); LYMPHOCYTES % (AUTO) 19.7 % (21.0-51.0); MEAN CORPUSCULAR HEMOGLOBIN 28.8 pg (27.0-33.0); MEAN CORPUSCULAR HGB CONC 31.4 g/dL (32.0-36.0); MEAN CORPUSCULAR VOLUME 91.8 fL (79-99); MONOCYTES % (AUTO) 6.3 % (3.0-13.0); NEUTROPHILS % (AUTO) 70.9 % (40.0-77.0); PLATELET COUNT (AUTO) 240 K/uL (130-400); RED BLOOD CELL COUNT(AUTO) 3.68 MIL/uL (4.00-5.50); RED CELL DISTRIBUTION WIDTH 13.1 % (11.0-15.5); WHITE BLOOD COUNT (AUTO) 6.9 K/uL (4.8-10.8)
[2022-04-19 19:41] LABS: CREATININE 0.7 mg/dL (0.5-1.5); POTASSIUM 3.9 mmol/L (3.5-5.1)
[2022-04-19] MEDS ORDERED: 0.9% NACL 500ML IV.SOLN 500 ML IV ONE (19:45)
[2022-04-19 19:54] LABS: ALBUMIN 4.2 g/dL (3.5-5.0); TOTAL PROTEIN, SERUM 8.1 g/dL (6.0-8.3)
[2022-04-19 22:00] LABS: APPEARANCE,URINE CLEAR (CLEAR); BILIRUBIN,URINE NEGATIVE (NEGATIVE); COLOR,URINE LIGHT-YELLOW (YELLOW); GLUCOSE, URINE (UA) 30 mg/dL (NEGATIVE); KETONES,URINE NEGATIVE (NEGATIVE); LEUKOCYTE ESTERASE ,URINE NEGATIVE Leu/uL (NEGATIVE); NITRATE,URINE NEGATIVE (NEGATIVE); OCCULT BLOOD,URINE NEGATIVE (NEGATIVE); PH,URINE 5.5 (5.0-8.0); PROTEIN,URINE NEGATIVE (NEGATIVE); UROBILINOGEN,URINE 0.2 mg/dL (0.2-1.0)
[2022-04-19] MEDS ORDERED: MAG/ALUM/SIMETH 30 ML UDCUP PO PRN (22:00)
[2022-04-19] MEDS ORDERED: ACETAMINOPHEN 325 MG TAB PO PRN ×2 (22:00)
[2022-04-19] MEDS ORDERED: INSULIN REGULAR, HUMAN 3ML 100 UNIT in 0.9%NACL 100ML 99 ML IV PRN ×4 (22:00)
[2022-04-19 22:01] LABS: RBC,URINE 0-1 /HPF (0-1); SQUAMOUS EPITHELIAL CELL,UR RARE /HPF (0-2)
[2022-04-20 02:42] VITALS: BP 149/42
[2022-04-20] MEDS ORDERED: LISI40TA9 PO (02:42)
[2022-04-20] MEDS ORDERED: FURO20TA4 PO (02:42)
[2022-04-20] MEDS ORDERED: ASPIRIN 81MG CHEW TAB PO ONE (03:00)
[2022-04-20 03:36] VITALS: BP 121/62
[2022-04-20 03:40] LABS: BASOPHILS % (AUTO) 0.6 % (0.0-5.0); EOSINOPHILS % (AUTO) 2.8 % (0.0-8.0); HEMATOCRIT 31.1 % (36-48); LYMPHOCYTES % (AUTO) 26.3 % (21.0-51.0); MEAN CORPUSCULAR HEMOGLOBIN 29.2 pg (27.0-33.0); MEAN CORPUSCULAR HGB CONC 32.2 g/dL (32.0-36.0); MEAN CORPUSCULAR VOLUME 90.9 fL (79-99); MONOCYTES % (AUTO) 7.1 % (3.0-13.0); NEUTROPHILS % (AUTO) 62.9 % (40.0-77.0); PLATELET COUNT (AUTO) 244 K/uL (130-400); RED BLOOD CELL COUNT(AUTO) 3.42 MIL/uL (4.00-5.50); RED CELL DISTRIBUTION WIDTH 13.2 % (11.0-15.5); WHITE BLOOD COUNT (AUTO) 6.5 K/uL (4.8-10.8)
[2022-04-20 04:16] LABS: ALBUMIN 3.7 g/dL (3.5-5.0); CREATININE 0.8 mg/dL (0.5-1.5); POTASSIUM 3.9 mmol/L (3.5-5.1); TOTAL PROTEIN, SERUM 7.2 g/dL (6.0-8.3)
[2022-04-20] MEDS: INSULIN HUMULIN R 100 UNIT/ML 3ML SQ SCH ×2 (06:11→11:30)
[2022-04-20 06:41] VITALS: BP 106/58
[2022-04-20] MEDS ORDERED: INSULIN LISPRO 100 UNIT/ML 3ML SQ SCH ×8 (07:30)
[2022-04-20] MEDS ORDERED: INSULIN HUMULIN R 100 UNIT/ML 3ML SQ SCH ×7 (07:30)
[2022-04-20] MEDS ORDERED: ASPIRIN 81MG CHEW TAB PO SCH (09:00)
[2022-04-20] MEDS ORDERED: LISINOPRIL 40 MG TABLET PO SCH (09:00)
[2022-04-20] MEDS ORDERED: FUROSEMIDE 20 MG TABLET PO SCH (09:00)
[2022-04-20 11:37] VITALS: BP 97/55
[2022-04-20] MEDS ORDERED: LISI20TA24 PO (12:13)
[2022-04-20] MEDS ORDERED: ATORVASTATIN 40 MG TABLET PO SCH (21:00)
[2022-04-21] MEDS ORDERED: LISINOPRIL 20 MG TABLET PO SCH (09:00)
== END 2022-04-20 15:30 | disposition home or self-care (01) ==
LOC: EDH 17:38 → EDHIP 21:49 → 2AH 04-20 02:24
PROVIDERS: ADMIT Internal Medicine; ATTEND Internal Medicine
DX: R77.8 Other specified abnormalities of plasma proteins (principal); I10 Essential (primary) hypertension; I25.10 Atherosclerotic heart disease of native coronary artery without angina pectoris; E78.00 Pure hypercholesterolemia, unspecified; G20 Parkinson's disease; F02.80 Dementia in other diseases classified elsewhere, unspecified severity, without behavioral disturbance, psychotic disturbance, mood disturbance, and anxiety; I24.9 Acute ischemic heart disease, unspecified; Z98.61 Coronary angioplasty status; Z95.810 Presence of automatic (implantable) cardiac defibrillator; Z79.899 Other long term (current) drug therapy; Z98.890 Other specified postprocedural states; W01.0XXA Fall on same level from slipping, tripping and stumbling without subsequent striking against object, initial encounter; Y92.89 Other specified places as the place of occurrence of the external cause; Y93.89 Activity, other specified; Y99.8 Other external cause status
CPT/HCPCS: 99285; 82550 ×4; 83874 ×3; 84484 ×5; 80053 ×2; 85025 ×2; 81001; 36415 ×2; 73562 ×2; 70450; 72125; 93005; 80061; 82948 ×2; 97161; 97039; 97116; G0378 ×17; J7040

== ENCOUNTER 2022-10-09 15:53 | Observation (INO) | payer OTHER, MEDICARE ==
[~2022-10-09] VITALS: Ht 157.5 cm; Wt 74.4 kg
[~2022-10-09 15:53] MED LIST changes: -ACET-2079 PO; +FURO20TA4 PO; +LISI20TA24 PO; +ROPI0.2535 PO; -ROPI0.257 PO
[2022-10-09] MEDS ORDERED: ACETAMINOPHEN 325 MG TAB PO ONE (16:30)
[2022-10-09 16:36] LABS: SARS-CoV-2, RNA, NAAT NEGATIVE SARS CoV-2 (NEGATIVE)
[2022-10-09 16:38] LABS: INFLUENZA TYPE A Negative For Type A (NEGATIVE); INFLUENZA TYPE B Negative For Type B (NEGATIVE)
[2022-10-09 16:58] LABS: RAPID GROUP A STREP negative (NEGATIVE)
[2022-10-09] MEDS ORDERED: LACTATED RINGERS 1000ML 1,503 ML IV ONE (18:00)
[2022-10-09 18:17] LABS: BASOPHILS # (AUTO) 0.04 K/uL (0.00-0.20); BASOPHILS % (AUTO) 0.3 % (0.0-5.0); EOSINOPHILS # (AUTO) 0.19 K/uL (0.00-0.70); EOSINOPHILS % (AUTO) 1.6 % (0.0-8.0); HEMATOCRIT 29.2 % (36-48); IMMATURE GRANULOCYTE ABSOLUTE 0.03 K/uL (0-1); LYMPHOCYTES # (AUTO) 1.1 K/uL (1.0-4.8); LYMPHOCYTES % (AUTO) 9.2 % (21.0-51.0); MEAN CORPUSCULAR HEMOGLOBIN 29.4 pg (27.0-33.0); MEAN CORPUSCULAR HGB CONC 32.2 g/dL (32.0-36.0); MEAN CORPUSCULAR VOLUME 91.3 fL (79-99); MONOCYTES # (AUTO) 0.7 K/uL (0.1-1.0); MONOCYTES % (AUTO) 5.8 % (3.0-13.0); NEUTROPHILS # (AUTO) 9.6 K/uL (1.8-7.7); NEUTROPHILS % (AUTO) 82.8 % (40.0-77.0); PLATELET COUNT (AUTO) 240 K/uL (130-400); RED CELL DISTRIBUTION WIDTH 13.8 % (11.0-15.5); WHITE BLOOD COUNT (AUTO) 11.6 K/uL (4.8-10.8)
[2022-10-09 18:35] LABS: CREATININE 1.3 mg/dL (0.5-1.5); POTASSIUM 4.7 mmol/L (3.5-5.1)
[2022-10-09 18:39] LABS: ALBUMIN 3.5 g/dL (3.5-5.0); BILIRUBIN,TOTAL 0.2 mg/dL (0.2-1.0); MAGNESIUM 1.9 mg/dL (1.80-2.40); TOTAL PROTEIN, SERUM 7.2 g/dL (6.0-8.3)
[2022-10-09 18:56] LABS: B-TYPE NATRIURETIC PEPTIDE 109 pg/mL (0-100)
[2022-10-09 19:37] VITALS: TEMP 98.6
[2022-10-09] MEDS ORDERED: CEFTRIAXONE 2GM VIAL IVPB ONE (21:00)
[2022-10-09] MEDS ORDERED: 0.9%NACL 1000ML 1,000 ML IV ONE (21:00)
[2022-10-09 22:05] LABS: ADD UA MICROSCOPIC YES; APPEARANCE,URINE CLEAR (CLEAR); BILIRUBIN,URINE NEGATIVE (NEGATIVE); COLOR,URINE LIGHT-YELLOW (YELLOW); GLUCOSE, URINE (UA) NEGATIVE (NEGATIVE); KETONES,URINE NEGATIVE (NEGATIVE); LEUKOCYTE ESTERASE ,URINE 75 Leu/uL (NEGATIVE); NITRATE,URINE NEGATIVE (NEGATIVE); OCCULT BLOOD,URINE NEGATIVE (NEGATIVE); PROTEIN,URINE NEGATIVE (NEGATIVE); UROBILINOGEN,URINE 0.2 mg/dL (0.2-1.0)
[2022-10-09 22:08] LABS: BACTERIA,URINE RARE /HPF (None Seen); MUCUS,URINE RARE LPF (None Seen); OTHER CASTS, URINE 1 /LPF (None Seen); RBC,URINE 0-1 /HPF (0-1); SQUAMOUS EPITHELIAL CELL,UR RARE /HPF (0-2); UNCLASSIFIED CRYSTAL 1 /HPF (None Seen)
[2022-10-09 23:51] LABS: HEMOGLOBIN A1C 6.4 % (4.0-6.0)
[2022-10-10] VITALS (9 sets, daily range): BP systolic 100–118; BP diastolic 50–62; PULSE 60–61; RESP 18–20; O2SAT 98
[2022-10-10] MEDS ORDERED: ACETAMINOPHEN 650 MG SUPPOSITORY RC PRN
[2022-10-10] MEDS ORDERED: LABETALOL 20MG SYG IV PRN
[2022-10-10] MEDS ORDERED: ACETAMINOPHEN 325 MG TAB PO PRN
[2022-10-10] MEDS ORDERED: HYDROCODONE/ACETAMINOPHEN 5/325 MG TAB PO PRN
[2022-10-10] MEDS ORDERED: ONDANSETRON 4MG INJ IVP PRN
[2022-10-10] MEDS ORDERED: HYDRALAZINE 20MG/ML VIAL IV PRN
[2022-10-10] MEDS: LACTATED RINGERS 1000ML 1,000 ML IV SCH ×3 (00:16→19:56)
[2022-10-10] MEDS: INSULIN HUMULIN R 100 UNIT/ML 3ML SQ SCH ×4 (06:05→20:38)
[2022-10-10] MEDS: DOCUSATE SODIUM 100 MG CAP PO SCH ×2 (08:33→19:56)
[2022-10-10] MEDS: PANTOPRAZOLE 40 MG/VIAL IVP SCH (08:33)
[2022-10-10] MEDS: ENOXAPARIN SODIUM 40 MG/0.4 ML SYRINGE SQ SCH (08:34)
[2022-10-10] MEDS: CEFTRIAXONE 2GM VIAL IVPB SCH (08:34)
[2022-10-10 10:55] LABS: HEMATOCRIT 26.8 % (36-48); MEAN CORPUSCULAR HEMOGLOBIN 29.1 pg (27.0-33.0); MEAN CORPUSCULAR HGB CONC 31.3 g/dL (32.0-36.0); MEAN CORPUSCULAR VOLUME 92.7 fL (79-99); RED BLOOD CELL COUNT(AUTO) 2.89 MIL/uL (4.00-5.50); RED CELL DISTRIBUTION WIDTH 13.8 % (11.0-15.5); WHITE BLOOD COUNT (AUTO) 5.4 K/uL (4.8-10.8)
[2022-10-10 11:12] LABS: CREATININE 0.6 mg/dL (0.5-1.5); POTASSIUM 4.1 mmol/L (3.5-5.1)
[2022-10-10 11:25] LABS: BILIRUBIN,DIRECT 0.1 mg/dL (0.0-0.3); BILIRUBIN,TOTAL 0.2 mg/dL (0.2-1.0); THYROID STIMULATING HORMONE 0.44 uIU/mL (0.36-3.74)
[2022-10-10] MEDS ORDERED: PREG50CA63 PO (16:53)
[2022-10-10] MEDS ORDERED: LISI20TA24 PO (16:53)
[2022-10-10] MEDS ORDERED: CARB1TAB35 PO (16:53)
[2022-10-10] MEDS ORDERED: FLUO20CA30 PO (16:53)
[2022-10-10] MEDS ORDERED: ATOR40TA71 PO (16:53)
[2022-10-10] MEDS ORDERED: SIMV-43 PO (16:55)
[2022-10-10] MEDS ORDERED: CLOP75TA32 PO (16:57)
[2022-10-10] MEDS ORDERED: ASPI-1197 PO (16:57)
[2022-10-10] MEDS ORDERED: FURO20TA4 PO (16:57)
[2022-10-11] VITALS: BP 94/46; PULSE 61; RESP 18
[2022-10-11 04:00] VITALS: BP 106/54; PULSE 61; RESP 20
[2022-10-11] MEDS: INSULIN HUMULIN R 100 UNIT/ML 3ML SQ SCH ×3 (05:20→16:04)
[2022-10-11 05:45] LABS: HEMATOCRIT 25.7 % (36-48); MEAN CORPUSCULAR HEMOGLOBIN 29.2 pg (27.0-33.0); MEAN CORPUSCULAR HGB CONC 31.5 g/dL (32.0-36.0); MEAN CORPUSCULAR VOLUME 92.8 fL (79-99); RED BLOOD CELL COUNT(AUTO) 2.77 MIL/uL (4.00-5.50); RED CELL DISTRIBUTION WIDTH 13.7 % (11.0-15.5); WHITE BLOOD COUNT (AUTO) 5.8 K/uL (4.8-10.8)
[2022-10-11 05:50] LABS: CREATININE 0.6 mg/dL (0.5-1.5)
[2022-10-11] MEDS: LACTATED RINGERS 1000ML 1,000 ML IV SCH ×2 (05:59→16:00)
[2022-10-11 08:00] VITALS: BP 118/54; PULSE 61; RESP 16
[2022-10-11] MEDS: PANTOPRAZOLE 40 MG/VIAL IVP SCH (08:28)
[2022-10-11] MEDS: DOCUSATE SODIUM 100 MG CAP PO SCH (08:29)
[2022-10-11] MEDS: ENOXAPARIN SODIUM 40 MG/0.4 ML SYRINGE SQ SCH (08:29)
[2022-10-11] MEDS: CEFTRIAXONE 2GM VIAL IVPB SCH (08:29)
[2022-10-11 12:00] VITALS: BP 132/64; PULSE 60; RESP 18
[2022-10-11 16:00] VITALS: BP 116/55; PULSE 60; RESP 16
[2022-10-11] MEDS ORDERED: LEVO750T68 PO (16:10)
== END 2022-10-11 18:00 | disposition home or self-care (01) ==
LOC: EDH 15:53 → EDHIP 23:50 → 3BH 10-10 01:02
PROVIDERS: ADMIT Internal Medicine; ATTEND Internal Medicine
DX: A41.9 Sepsis, unspecified organism (principal); Z20.822 Contact with and (suspected) exposure to COVID-19; N39.0 Urinary tract infection, site not specified; I10 Essential (primary) hypertension; G20 Parkinson's disease; E11.9 Type 2 diabetes mellitus without complications; E87.1 Hypo-osmolality and hyponatremia; E78.00 Pure hypercholesterolemia, unspecified; J44.9 Chronic obstructive pulmonary disease, unspecified; R74.8 Abnormal levels of other serum enzymes; E86.0 Dehydration; Z86.73 Personal history of transient ischemic attack (TIA), and cerebral infarction without residual deficits; Z79.82 Long term (current) use of aspirin; Z79.899 Other long term (current) drug therapy; Z98.890 Other specified postprocedural states
CPT/HCPCS: 96361 ×3; 96365; 99285; 83036; 82550; 83735; 84484 ×2; 80053; 83880; 83690 ×2; 85025; 87040 ×2; 87088; 87880; 87804 ×2; 83605; 81001; 36415 ×3; 87635; 71045; 72100; 93005; 96372 ×2; 96366 ×2; 96375; 82150; 84443 ×2; 82247; 82248; 80048 ×2; 85027 ×2; 82948 ×7; 96376; G0378 ×42; C9803; J7120 ×3; J7030; J0696 ×3; A4600; C9113 ×2; J1650 ×2

== ENCOUNTER 2023-01-05 14:48 | Emergency (ER) | payer OTHER, MEDICARE ==
[~2023-01-05] VITALS: Ht 157.5 cm; Wt 68.9 kg
[~2023-01-05 14:48] MED LIST changes: -ASPI-1005 PO; +ASPI-1197 PO; -ATOR40TA69 PO; +CARB1TAB35 PO; +CLOP75TA32 PO; -DICY20TA3 PO; +FLUO20CA30 PO; -HYDR12.54 PO; +LEVO750T68 PO; -PANT40TA PO; -PANT40TA54 PO; +PREG50CA64 PO; -ROPI0.2535 PO; +SIMV-43 PO
[2023-01-05 18:10] LABS: BASOPHILS # (AUTO) 0.03 K/uL (0.00-0.20); BASOPHILS % (AUTO) 0.4 % (0.0-5.0); EOSINOPHILS # (AUTO) 0.21 K/uL (0.00-0.70); EOSINOPHILS % (AUTO) 2.5 % (0.0-8.0); HEMATOCRIT 30.9 % (36-48); IMMATURE GRANULOCYTE ABSOLUTE 0.02 K/uL (0-1); LYMPHOCYTES % (AUTO) 12.1 % (21.0-51.0); MEAN CORPUSCULAR HEMOGLOBIN 29.2 pg (27.0-33.0); MEAN CORPUSCULAR VOLUME 91.2 fL (79-99); MONOCYTES # (AUTO) 0.6 K/uL (0.1-1.0); NEUTROPHILS # (AUTO) 6.6 K/uL (1.8-7.7); NEUTROPHILS % (AUTO) 77.8 % (40.0-77.0); PLATELET COUNT (AUTO) 254 K/uL (130-400); RED BLOOD CELL COUNT(AUTO) 3.39 MIL/uL (4.00-5.50); RED CELL DISTRIBUTION WIDTH 12.8 % (11.0-15.5); WHITE BLOOD COUNT (AUTO) 8.5 K/uL (4.8-10.8)
[2023-01-05 18:22] LABS: CREATININE 0.9 mg/dL (0.5-1.5); POTASSIUM 4.1 mmol/L (3.5-5.1)
[2023-01-05 18:27] LABS: ALBUMIN 3.4 g/dL (3.5-5.0); BILIRUBIN,TOTAL 0.2 mg/dL (0.2-1.0); TOTAL PROTEIN, SERUM 7.8 g/dL (6.0-8.3)
[2023-01-05 19:00] LABS: ADD UA MICROSCOPIC YES; APPEARANCE,URINE CLEAR (CLEAR); BILIRUBIN,URINE NEGATIVE (NEGATIVE); COLOR,URINE LIGHT-YELLOW (YELLOW); GLUCOSE, URINE (UA) 50 mg/dL (NEGATIVE); KETONES,URINE NEGATIVE (NEGATIVE); LEUKOCYTE ESTERASE ,URINE NEGATIVE Leu/uL (NEGATIVE); NITRATE,URINE NEGATIVE (NEGATIVE); OCCULT BLOOD,URINE NEGATIVE (NEGATIVE); PH,URINE 5.5 (5.0-8.0); PROTEIN,URINE NEGATIVE (NEGATIVE); UROBILINOGEN,URINE 0.2 mg/dL (0.2-1.0)
[2023-01-05] MEDS ORDERED: ACETAMINOPHEN 500 MG TABLET PO ONE (19:00)
[2023-01-05 19:04] LABS: BACTERIA,URINE RARE /HPF (None Seen); MUCUS,URINE FEW LPF (None Seen); SQUAMOUS EPITHELIAL CELL,UR RARE /HPF (0-2)
[2023-01-05 19:13] LABS: RAPID GROUP A STREP negative (NEGATIVE)
[2023-01-05 19:24] LABS: COVID19 (SARS ANTIGEN RAPID) PRESUMPTIVE NEGATIVE (NEGATIVE); INFLUENZA TYPE A Negative For Type A (NEGATIVE); INFLUENZA TYPE B Negative For Type B (NEGATIVE)
[2023-01-05 20:10] VITALS: TEMP 100
[2023-01-05] MEDS ORDERED: 0.9% NACL 500ML IV.SOLN 500 ML IV ONE (21:00)
[2023-01-05] MEDS ORDERED: FLUT16H NASAL (22:52)
[2023-01-05 22:59] VITALS: BP 124/70; PULSE 80; RESP 18; O2SAT 97
== END 2023-01-05 23:51 | disposition home or self-care (01) ==
LOC: EDH 14:48
DX: B34.9 Viral infection, unspecified (principal); J06.9 Acute upper respiratory infection, unspecified; D64.9 Anemia, unspecified; I10 Essential (primary) hypertension; E78.00 Pure hypercholesterolemia, unspecified; R77.8 Other specified abnormalities of plasma proteins; Z20.822 Contact with and (suspected) exposure to COVID-19; Z79.82 Long term (current) use of aspirin; Z79.899 Other long term (current) drug therapy; Z98.890 Other specified postprocedural states
CPT/HCPCS: 36415; 71045; 80053; 81001; 83605; 83735; 83880; 84484; 85025; 87426; 87804; 87880; 93005

== ENCOUNTER 2023-08-26 06:21 | Observation (INO) | payer OTHER, MEDICARE ==
[~2023-08-26] VITALS: Ht 162.6 cm; Wt 79.4 kg
[~2023-08-26 06:21] MED LIST changes: +AEC81 PO; -ASPI-1197 PO; +ATOR40TA69 PO; -CARB1TAB35 PO; +CEPH500B PO; +CLOP-31 PO; -CLOP75TA32 PO; -FLUO20CA30 PO; -FURO20TA4 PO; -LEVO750T68 PO; -LISI20TA24 PO; -PREG50CA64 PO; -SIMV-43 PO
[2023-08-26 06:41] LABS: BASOPHILS # (AUTO) 0.04 K/uL (0.00-0.20); BASOPHILS % (AUTO) 0.6 % (0.0-5.0); HEMATOCRIT 32.9 % (36-48); IMMATURE GRANULOCYTE ABSOLUTE 0.02 K/uL (0-1); LYMPHOCYTES # (AUTO) 1.2 K/uL (1.0-4.8); LYMPHOCYTES % (AUTO) 18.1 % (21.0-51.0); MEAN CORPUSCULAR HEMOGLOBIN 28.1 pg (27.0-33.0); MEAN CORPUSCULAR HGB CONC 31.6 g/dL (32.0-36.0); MEAN CORPUSCULAR VOLUME 88.9 fL (79-99); MONOCYTES # (AUTO) 0.5 K/uL (0.1-1.0); MONOCYTES % (AUTO) 7.9 % (3.0-13.0); NEUTROPHILS # (AUTO) 4.7 K/uL (1.8-7.7); NEUTROPHILS % (AUTO) 70.1 % (40.0-77.0); PLATELET COUNT (AUTO) 235 K/uL (130-400); RED CELL DISTRIBUTION WIDTH 13.2 % (11.0-15.5); WHITE BLOOD COUNT (AUTO) 6.7 K/uL (4.8-10.8)
[2023-08-26 06:54] LABS: CREATININE 0.8 mg/dL (0.5-1.0); POTASSIUM 3.7 mmol/L (3.5-5.1)
[2023-08-26 07:10] LABS: B-TYPE NATRIURETIC PEPTIDE 76 pg/mL (0-100)
[2023-08-26] MEDS ORDERED: DEXTROSE 50%-WATER 50 ML DISP.SYRIN IV PRN (08:00)
[2023-08-26] MEDS ORDERED: POTASSIUM CHLORIDE 10% ELIXIR 20 MEQ/15 ML UDCUP PO PRN (08:00)
[2023-08-26] MEDS ORDERED: SIMETH PO PRN (08:00)
[2023-08-26] MEDS ORDERED: LIDOCAINE 2% PO PRN (08:00)
[2023-08-26] MEDS ORDERED: NITROGLYCERIN 0.4 MG SL TAB SL PRN (08:00)
[2023-08-26] MEDS ORDERED: POLYETHYLENE GLYCOL 3350 17 GM POWD.PACK PO PRN (08:00)
[2023-08-26] MEDS ORDERED: HYDRALAZINE 20MG/ML VIAL IV PRN (08:00)
[2023-08-26] MEDS ORDERED: MAG PO PRN (08:00)
[2023-08-26] MEDS ORDERED: GLUCAGON 1MG KIT 1 MG ML IM PRN (08:00)
[2023-08-26] MEDS ORDERED: DOCUSATE SODIUM 100 MG CAP PO PRN (08:00)
[2023-08-26] MEDS ORDERED: MAGNESIUM 2GM PREMIX 50ML 50 ML IV PRN (08:00)
[2023-08-26] MEDS ORDERED: ALUM PO PRN (08:00)
[2023-08-26] MEDS ORDERED: POTASSIUM CHLORIDE 20MEQ/100ML 100 ML IV PRN ×2 (08:00)
[2023-08-26] MEDS ORDERED: VISC PO PRN (08:00)
[2023-08-26] MEDS ORDERED: DICYCLOMINE HCL PO PRN (08:00)
[2023-08-26 08:33] LABS: HEMOGLOBIN A1C 6.3 % (4.0-6.0)
[2023-08-26 08:37] LABS: INR 0.96 (0.85-1.15); PROTHROMBIN TIME 10.4 SEC (9.6-11.6)
[2023-08-26 08:38] LABS: PARTIAL THROMBOPLASTIN TIME 28.2 SEC (26.3-35.5)
[2023-08-26 08:46] LABS: MAGNESIUM 1.8 mg/dL (1.80-2.40); PHOSPHORUS 2.5 mg/dL (2.5-4.9); THYROID STIMULATING HORMONE 0.78 uIU/mL (0.36-3.74)
[2023-08-26] MEDS ORDERED: FLUO90CA4 PO (08:56)
[2023-08-26] MEDS ORDERED: LEVO5TAB13 PO (08:56)
[2023-08-26] MEDS ORDERED: CARB1TAB35 PO (08:56)
[2023-08-26] MEDS ORDERED: LISI20TA24 PO (08:56)
[2023-08-26 09:00] VITALS: O2SAT 98
[2023-08-26] MEDS: ENOXAPARIN SODIUM 30 MG/0.3 ML SQ SCH (09:00)
[2023-08-26] MEDS: FAMOTIDINE 20MG TAB PO SCH (09:00)
[2023-08-26] MEDS: INSULIN HUMULIN R 100 UNIT/ML 3ML SQ SCH (11:30)
[2023-08-26 13:08] VITALS: BP 145/91; PULSE 68; RESP 16
[2023-08-26 13:55] LABS: AMYLASE 31 U/L (25-115)
[2023-08-26] MEDS: SUCRALFATE 1 GM TABLET PO SCH (14:00)
[2023-08-26] MEDS: CARBIDOPA-LEVODOPA 25-100 TAB PO SCH (14:00)
[2023-08-26 17:26] VITALS: BP 127/50; PULSE 60; RESP 16
[2023-08-26 19:52] VITALS: BP 147/67; PULSE 68; RESP 18
[2023-08-26 20:32] VITALS: O2SAT 98
[2023-08-26] MEDS: CEFTRIAXONE 2GM VIAL IVPB SCH (20:32)
[2023-08-26] MEDS: DOXYCYCLINE HYCLATE 100 MG TABLET PO SCH (20:32)
[2023-08-26] MEDS: ATORVASTATIN 40 MG TABLET PO SCH (20:32)
[2023-08-26] MEDS ORDERED: ENOXAPARIN SODIUM 80 MG/0.8 ML SQ SCH (21:00)
[2023-08-26 23:42] VITALS: BP 115/58; PULSE 61; RESP 18
[2023-08-27] VITALS (8 sets, daily range): BP systolic 115–128; BP diastolic 53–69; PULSE 59–70; RESP 18–20; O2SAT 98
[2023-08-27 03:44] LABS: HEMOGLOBIN A1C 6.4 % (4.0-6.0)
[2023-08-27 03:49] LABS: ALBUMIN 2.9 g/dL (3.5-5.0); ASPARTATE AMINOTRANSFERASE 14 U/L (10-37); BILIRUBIN,TOTAL 0.2 mg/dL (0.2-1.0); CARBON DIOXIDE 28 mmol/L (21-32); CHLORIDE 106 mmol/L (101-111); CREATININE 0.8 mg/dL (0.5-1.0); GLOMERULAR FILTR. RATE CALC 78 mL/min (>90); GLUCOSE,RANDOM 96 mg/dL (70-105); POTASSIUM 3.3 mmol/L (3.5-5.1); SODIUM SERUM 140 mmol/L (136-145); TOTAL PROTEIN, SERUM 6.6 g/dL (6.0-8.3); UREA NITROGEN, BLOOD 14 mg/dL (7-18)
[2023-08-27 03:51] LABS: ALANINE AMINOTRANSFERASE < 6 U/L (12-78)
[2023-08-27] MEDS: KCL 20 MEQ ERTAB PO PRN (06:40)
[2023-08-27 07:55] LABS: BASOPHILS # (AUTO) 0.02 K/uL (0.00-0.20); BASOPHILS % (AUTO) 0.3 % (0.0-5.0); EOSINOPHILS # (AUTO) 0.34 K/uL (0.00-0.70); EOSINOPHILS % (AUTO) 5.8 % (0.0-8.0); HEMATOCRIT 28.7 % (36-48); IMMATURE GRANULOCYTE ABSOLUTE 0.03 K/uL (0-1); LYMPHOCYTES # (AUTO) 1.4 K/uL (1.0-4.8); LYMPHOCYTES % (AUTO) 23.1 % (21.0-51.0); MEAN CORPUSCULAR HEMOGLOBIN 28.3 pg (27.0-33.0); MEAN CORPUSCULAR HGB CONC 32.1 g/dL (32.0-36.0); MEAN CORPUSCULAR VOLUME 88.3 fL (79-99); MONOCYTES # (AUTO) 0.7 K/uL (0.1-1.0); MONOCYTES % (AUTO) 11.5 % (3.0-13.0); NEUTROPHILS # (AUTO) 3.4 K/uL (1.8-7.7); NEUTROPHILS % (AUTO) 58.8 % (40.0-77.0); PLATELET COUNT (AUTO) 236 K/uL (130-400); RED BLOOD CELL COUNT(AUTO) 3.25 MIL/uL (4.00-5.50); RED CELL DISTRIBUTION WIDTH 13.2 % (11.0-15.5); WHITE BLOOD COUNT (AUTO) 5.9 K/uL (4.8-10.8)
[2023-08-27] MEDS: ENOXAPARIN SODIUM 30 MG/0.3 ML SQ SCH (09:07)
[2023-08-27] MEDS: CLOPIDOGREL 75MG TAB PO SCH (09:08)
[2023-08-27] MEDS: LISINOPRIL 20 MG TABLET PO SCH (09:08)
[2023-08-27] MEDS: DEXAMETHASONE 4 MG TAB PO SCH (09:08)
[2023-08-27] MEDS: FUROSEMIDE 20MG VIAL IV ONE (09:09)
[2023-08-27] MEDS: FLUOXETINE HCL 90 MG PO SCH (09:19)
[2023-08-27] MEDS: LEVOCETIRIZINE DIHYDROCHLORIDE 5 MG PO SCH (09:20)
[2023-08-27] MEDS ORDERED: LACE ASSESSMENT (SCORE > 11) MISC SCH (13:00)
[2023-08-28 04:13] VITALS: BP 132/70; PULSE 60; RESP 20
[2023-08-28 07:00] VITALS: O2SAT 98
[2023-08-28 07:49] LABS: BASOPHILS # (AUTO) 0.02 K/uL (0.00-0.20); BASOPHILS % (AUTO) 0.3 % (0.0-5.0); EOSINOPHILS # (AUTO) 0.01 K/uL (0.00-0.70); EOSINOPHILS % (AUTO) 0.2 % (0.0-8.0); HEMATOCRIT 32.7 % (36-48); IMMATURE GRANULOCYTE ABSOLUTE 0.02 K/uL (0-1); LYMPHOCYTES # (AUTO) 1.3 K/uL (1.0-4.8); MEAN CORPUSCULAR HEMOGLOBIN 27.8 pg (27.0-33.0); MEAN CORPUSCULAR HGB CONC 31.8 g/dL (32.0-36.0); MEAN CORPUSCULAR VOLUME 87.4 fL (79-99); MONOCYTES # (AUTO) 0.5 K/uL (0.1-1.0); MONOCYTES % (AUTO) 7.9 % (3.0-13.0); NEUTROPHILS % (AUTO) 69.3 % (40.0-77.0); PLATELET COUNT (AUTO) 261 K/uL (130-400); RED BLOOD CELL COUNT(AUTO) 3.74 MIL/uL (4.00-5.50); RED CELL DISTRIBUTION WIDTH 13.1 % (11.0-15.5); WHITE BLOOD COUNT (AUTO) 5.8 K/uL (4.8-10.8)
[2023-08-28 08:02] LABS: CREATININE 0.8 mg/dL (0.5-1.0); POTASSIUM 3.8 mmol/L (3.5-5.1)
[2023-08-28 08:15] VITALS: BP 135/66; PULSE 60; RESP 18
[2023-08-28] MEDS ORDERED: SUCR1TAB PO (08:16)
[2023-08-28] MEDS ORDERED: DOXY100T2 PO (08:16)
== END 2023-08-28 10:30 | disposition home or self-care (01) ==
LOC: EDH 06:21 → EDHIP 07:42 → INTOOBSV 07:42 → 2DH 08:43
PROVIDERS: ADMIT Internal Medicine; ATTEND Internal Medicine
DX: U07.1 COVID-19 (principal); I48.91 Unspecified atrial fibrillation; D64.9 Anemia, unspecified; E11.65 Type 2 diabetes mellitus with hyperglycemia; I20.0 Unstable angina; K76.0 Fatty (change of) liver, not elsewhere classified; K80.20 Calculus of gallbladder without cholecystitis without obstruction; R60.0 Localized edema; I25.2 Old myocardial infarction; E78.00 Pure hypercholesterolemia, unspecified; I11.0 Hypertensive heart disease with heart failure; I50.9 Heart failure, unspecified; I69.354 Hemiplegia and hemiparesis following cerebral infarction affecting left non-dominant side; Z95.810 Presence of automatic (implantable) cardiac defibrillator; Z79.899 Other long term (current) drug therapy
CPT/HCPCS: 96372 ×3; 96365; 82550 ×4; 99285; 83036 ×2; 82150; 84443; 83735; 84100; 84484 ×4; 80061; 80048 ×2; 83880; 83690 ×2; 85025 ×3; 85378; 85610; 85730; 85651; 87040; 82948 ×8; 83605; 87426; 36415 ×3; 71045 ×2; 76705; 93306; 93356; 93970; 76376; 93005 ×3; 84145; 96366; 96375; 80053; 97161; 97116; J0696 ×2; J1815 ×2; J1650 ×2; J1940; J8540; G0378 ×2

== ENCOUNTER 2023-12-11 09:02 | Emergency (ER) | payer OTHER, MEDICARE ==
[~2023-12-11] VITALS: Ht 157.5 cm; Wt 73.5 kg
[~2023-12-11 09:02] MED LIST changes: +CARB1TAB35 PO; -CEPH500B PO; +DOXY100T2 PO; +FLUO90CA4 PO; +LEVO5TAB13 PO; +LISI20TA24 PO; +SUCR1TAB PO
[2023-12-11 09:39] LABS: BASOPHILS # (AUTO) 0.05 K/uL (0.00-0.20); BASOPHILS % (AUTO) 0.7 % (0.0-5.0); EOSINOPHILS # (AUTO) 0.12 K/uL (0.00-0.70); EOSINOPHILS % (AUTO) 1.7 % (0.0-8.0); HEMATOCRIT 34.3 % (36-48); IMMATURE GRANULOCYTE ABSOLUTE 0.04 K/uL (0-1); LYMPHOCYTES # (AUTO) 1.6 K/uL (1.0-4.8); LYMPHOCYTES % (AUTO) 22.3 % (21.0-51.0); MEAN CORPUSCULAR HEMOGLOBIN 27.9 pg (27.0-33.0); MEAN CORPUSCULAR HGB CONC 31.2 g/dL (32.0-36.0); MEAN CORPUSCULAR VOLUME 89.3 fL (79-99); MONOCYTES # (AUTO) 0.4 K/uL (0.1-1.0); MONOCYTES % (AUTO) 5.8 % (3.0-13.0); NEUTROPHILS % (AUTO) 68.9 % (40.0-77.0); PLATELET COUNT (AUTO) 268 K/uL (130-400); RED BLOOD CELL COUNT(AUTO) 3.84 MIL/uL (4.00-5.50); RED CELL DISTRIBUTION WIDTH 13.7 % (11.0-15.5); WHITE BLOOD COUNT (AUTO) 7.2 K/uL (4.8-10.8)
[2023-12-11 09:47] LABS: INR 0.94 (0.85-1.15); PROTHROMBIN TIME 10.2 SEC (9.6-11.6)
[2023-12-11 09:49] LABS: PARTIAL THROMBOPLASTIN TIME 25.6 SEC (26.3-35.5)
--- NOTE | 2023-12-11 09:51 | HMCIMG ---
CHEST 1VW HISTORY: Weakness COMPARISON: 08/27/2023 FINDINGS: A frontal projection of the chest was obtained. No acute pulmonary infiltrates is seen. The heart is borderline enlarged. Degenerative changes are seen. Aortic calcifications are seen. IMPRESSION: 1. No acute pulmonary infiltrate is seen.
[2023-12-11 09:52] LABS: APPEARANCE,URINE CLEAR (CLEAR); BILIRUBIN,URINE NEGATIVE (NEGATIVE); COLOR,URINE LIGHT-YELLOW (YELLOW); GLUCOSE, URINE (UA) NEGATIVE (NEGATIVE); KETONES,URINE NEGATIVE (NEGATIVE); LEUKOCYTE ESTERASE ,URINE NEGATIVE Leu/uL (NEGATIVE); NITRATE,URINE NEGATIVE (NEGATIVE); OCCULT BLOOD,URINE NEGATIVE (NEGATIVE); PH,URINE 5.5 (5.0-8.0); PROTEIN,URINE NEGATIVE (NEGATIVE); UROBILINOGEN,URINE 0.2 mg/dL (0.2-1.0)
[2023-12-11 09:53] LABS: ADD UA MICROSCOPIC NO
[2023-12-11 10:14] LABS: B-TYPE NATRIURETIC PEPTIDE 58 pg/mL (0-100)
[2023-12-11 10:16] LABS: CREATININE 0.7 mg/dL (0.5-1.0); POTASSIUM 4.4 mmol/L (3.5-5.1)
--- NOTE | 2023-12-11 11:06 | ERN ---
General Chief Complaint: Weakness Stated Complaint: GBW Time Seen by MD: 09:04 Source: patient History of Present Illness Initial Comments PATIENT IS A 73-YEAR-OLD FEMALE COMING IN TO BE EVALUATED FOR PEDAL EDEMA. PATIENT STATES HE HAS BEEN HAVING PEDAL EDEMA FOR FOUR MONTHS. SHE HAS HAD MULTIPLE VISITS IN THE PAST. PATIENT IS HERE DUE TO THE ONGOING PEDAL EDEMA. Allergies: Coded Allergies: No Known Drug Allergies (Unverified Allergy, Unknown, 05/06/19) Home Meds Active Scripts Sucralfate (Carafate) 1 Gram Tablet, 1 GM PO DAILY, #15 TAB 0 Refills Prov:BLUE GARIBAY [facility] 08/28/23 Doxycycline Hyclate (Doxycycline Hyclate) 100 Mg Tablet, 100 MG PO BID, #10 TAB 0 Refills Prov:BLUE GARIBAY [facility] 08/28/23 Clopidogrel Bisulfate (Plavix) 75 Mg Tablet, 75 MG PO DAILY for 21 Days, #21 TAB Prov:DILSHAD ORTEGA 02/16/23 Atorvastatin Calcium (LIPITOR) 40 Mg Tablet, 40 MG PO HS, #30 TAB Prov:DILSHAD ORTEGA 02/16/23 Aspirin (ASPIRIN 81 MG ECTAB) 81 Mg Ectab, 81 MG PO DAILY, #30 TAB.EC Prov:DILSHAD ORTEGA 02/16/23 Reported Medications Fluoxetine HCl (Fluoxetine Dr) 90 Mg Capsule.dr, 90 MG PO DAILY, CAP 08/26/23 Levocetirizine Dihydrochloride (Levocetirizine Dihydrochloride) 5 Mg Tablet, 5 MG PO DAILY, TAB 08/26/23 Carbidopa/Levodopa (Carbidopa-Levodopa 25-100 Tab) 25 Mg-100 Mg Tablet, 1 EACH PO TID, TAB 08/26/23 Lisinopril (Lisinopril) 20 Mg Tablet, 20 MG PO DAILY, TAB 08/26/23 Past Medical History Past Medical History: CVA, Diabetes-Type II, Hypertension Medical History Other: PARKINSONS Past Surgical History: Hysterectomy, Other Surgical History Other: BACK Family History Family History: Negative Social History Social History: Negative, Lives alone Female( History) History: Not Applicable ROS Dictation CONSTITUTIONAL: NO CHILLS, NO FEVER, WEAKNESS, NO DIAPHORESIS, NO MALAISE. HEAD/FACE: NO SIGNS OF TRAUMA. EENT: NO EYE PAIN, NO BLURRED VISION, NO TEARING, NO DOUBLE VISION, NO EAR PAIN, NO EAR DISCHARGE, NO NOSE PAIN, NO NASAL CONGESTION, NO THROAT PAIN, NO THROAT SWELLING, NO MOUTH PAIN. RESPIRATORY: NO COUGH, NO ORTHOPNEA, NO SOB, NO STRIDOR, NO WHEEZING. CARDIOVASCULAR: NO CHEST PAIN, NO EDEMA, NO PALPITATIONS, NO SYNCOPE. GASTROINTESTINAL/ABDOMINAL: NO ABDOMINAL PAIN, NO CONSTIPATION, NO DIARRHEA, NO NAUSEA, NO VOMITING. GENITOURINARY: NO ABNORMAL DISCHARGE, NO DYSURIA, NO FREQUENT URINATION, NO HEMATURIA. NO COMPLAINTS OF PAIN IN THE GENITALS. MUSCULOSKELETAL: NO BACK PAIN, NO GOUT, NO JOINT PAIN, NO JOINT SWELLING, NO MUSCLE PAIN, NO MUSCLE STIFFNESS, NO NECK PAIN. INTEGUMENTARY: NO CHANGE IN COLOR, NO CHANGE IN HAIR/NAILS, NO DRYNESS, NO LESION, NO LUMPS, NO RASH. NEUROLOGICAL/PSYCH: NO ANXIETY, NOT DEPRESSED, NO EMOTIONAL PROBLEM, NO HEADACHE, NO NUMBNESS, NO PRE-EXISTING DEFICIT, NO HISTORY OF SEIZURES, NO TREMORS, NO WEAKNESS. HEMATOLOGIC/LYMPHATIC: NOT ANEMIC, NO HISTORY OF BLOOD CLOTS, NO APPARENT BLEEDING, NO BRUISING, GLANDS NOT SWOLLEN. ALL SYSTEMS NEGATIVE, EXCEPT NOTED. Physical Exam Physical Exam Dictation VITAL SIGNS: REVIEWED. GENERAL APPEARANCE: ALERT, ORIENTED X3, NO ACUTE DISTRESS, OBESE. HEAD AND FACE: NON-TRAUMATIC. EYES: PERRL, PINK CONJUNCTIVAS, EYELID NO TRAUMA, ANTERIOR CHAMBER CLEAR. EARS: PINNAS INTACT AND NO SIGNS OF TRAUMA OR ERYTHEMA. EAR CANALS CLEAR AND NO DISCHARGE. TMS NO ERYTHEMA. NOSE: NO DISCHARGE, NO BLEEDING. OROPHARYNX: MOUTH NORMAL, TEETH NO CARIES, TONGUE PINK. PHARYNX CLEAR, NO ERYTHEMA. TONSILS NO EXUDATES, NO ABSCESSES NOTED. MUCOUS MEMBRANE MOIST. NECK: SUPPLE, NON-TENDER, NO THYROMEGALY, NO MASSES, NO JVD, NO BRUITS. BREAST: DEFERRED. CHEST: NO TENDERNESS, NO CREPITUS, NO PARADOXICAL MOVEMENT, NO RETRACTIONS. LUNGS: CLEAR, WELL-VENTILATED, SYMMETRIC, NO RALES, NO WHEEZING, NO RHONCHI, NO STRIDOR, GOOD BREATH SOUNDS BILATERALLY. HEART: REGULAR RATE, REGULAR RHYTHM, NO MURMUR, NO GALLOPS. VASCULAR: NO PERIPHERAL EDEMA. ABDOMEN: SOFT, POSITIVE BOWEL SOUNDS, NONDISTENDED, NO GUARDING, NONTENDER, NO REBOUND, NO MASSES NO HEPATOMEGALY, NO SPLENOMEGALY, NO GIRALDO'S SIGN, NO HERNIAS. RECTAL: DEFERRED. GENITAL: DEFERRED. NEUROLOGICAL: NORMAL SPEECH, GROSS MOTOR FUNCTION INTACT, GROSS SENSORY FUNCTION INTACT. MUSCULOSKELETAL: NECK NONTENDER, FULL RANGE OF MOTION, BACK NONTENDER, FULL RANGE OF MOTION. EXTREMITIES: NONTENDER, BILATERAL 2+ PEDAL EDEMA SKIN: COLOR PINK, DRY, NO TURGOR, NO RASH, NO LACERATIONS, NO ABRASIONS, NO CONTUSIONS. LYMPHATICS: DEFERRED. Results Laboratory and Microbiology Lab and Micro Result Laboratory Tests Test 12/11/23 09:18 12/11/23 09:31 12/11/23 10:24 Urine Color LIGHT-YELLOW (YELLOW) Urine Appearance CLEAR (CLEAR) Urine pH 5.5 (5.0-8.0) Urine Specific [place] 1.024 (1.001-1.031) Urine Protein NEGATIVE mg/dL (NEGATIVE) Urine Glucose (UA) NEGATIVE mg/dL (NEGATIVE) Urine Ketones NEGATIVE mg/dL (NEGATIVE) Urine Occult Blood NEGATIVE (NEGATIVE) Urine Nitrate NEGATIVE (NEGATIVE) Urine Bilirubin NEGATIVE mg/dL (NEGATIVE) Urine Urobilinogen 0.2 mg/dL (0.2-1.0) Urine Leukocyte Esterase NEGATIVE Marcell/uL White Blood Count 7.2 K/uL (4.8-10.8) Red Blood Count 3.84 MIL/uL (4.00-5.50) L Hemoglobin 10.7 g/dL (12.0-16.0) L Hematocrit 34.3 % (36-48) L Mean Corpuscular Volume 89.3 fL (79-99) Mean Corpuscular Hemoglobin 27.9 pg (27.0-33.0) Mean Corpuscular Hemoglobin Concent 31.2 g/dL (32.0-36.0) L Red Cell Distribution Width 13.7 % (11.0-15.5) Platelet Count 268 K/uL (130-400) Mean Platelet Volume 9.6 fL (7.5-10.5) Immature Granulocyte % (Auto) 0.6 % (0-1) Neutrophils (%) (Auto) 68.9 % (40.0-77.0) Lymphocytes (%) (Auto) 22.3 % (21.0-51.0) Monocytes (%) (Auto) 5.8 % (3.0-13.0) Eosinophils (%) (Auto) 1.7 % (0.0-8.0) Basophils (%) (Auto) 0.7 % (0.0-5.0) Neutrophils # (Auto) 5.0 K/uL (1.8-7.7) Lymphocytes # (Auto) 1.6 K/uL (1.0-4.8) Monocytes # (Auto) 0.4 K/uL (0.1-1.0) Eosinophils # (Auto) 0.12 K/uL (0.00-0.70) Basophils # (Auto) 0.05 K/uL (0.00-0.20) Absolute Immature Granulocyte (auto 0.04 K/uL (0-1) Nucleated Red Blood Cells 0.0 % (0.0-0.19) Prothrombin Time 10.2 SEC (9.6-11.6) Prothromb Time International Ratio 0.94 (0.85-1.15) Activated Partial Thromboplast Time 25.6 SEC (26.3-35.5) L Sodium Level 141 mmol/L (136-145) Potassium Level 4.4 mmol/L (3.5-5.1) Chloride Level 104 mmol/L (101-111) Carbon Dioxide Level 29 mmol/L (21-32) Blood Urea Nitrogen 20 mg/dL (7-18) H Creatinine 0.7 mg/dL (0.5-1.0) Glomerular Filtration Rate Calc 92 mL/min (>90) Random Glucose 104 mg/dL (70-105) Total Calcium 9.0 mg/dL (8.5-10.1) Total Creatine Kinase 96 U/L (21-232) Troponin I High Sensitivity 51 ng/L (4-50) *H 49 ng/L (4-50) B-Type Natriuretic Peptide 58 pg/mL (0-100) Labs Reviewed?: Yes EKG/XRAY/US/CT/MRI EKG Comment 12/11/2023 TIME 9:27 A.M. VENTRICULAR RATE [address] WAVE ELEVATION OR DEPRESSION ME 155 MDM MDM: DIFFERENTIAL DIAGNOSIS: CHRONIC PEDAL EDEMA, GENERALIZED BODY WEAKNESS PATIENT IS A 73-YEAR-OLD FEMALE COMING IN TO BE EVALUATED FOR PEDAL EDEMA. LONG WITH PEDAL EDEMA PATIENT STATES HE HAS BEEN HAVING CHRONIC FATIGUE FOR MANY MONTHS. LABORATORY WORKUP NEGATIVE FOR ACUTE FINDINGS. PATIENT WILL BE DISCHARGED IN STABLE CONDITION WITH A DIAGNOSIS OF PEDAL EDEMA. ED Course Orders Procedure Category Date Status Time Cbc With Differential LAB 12/11/23 Complete 09:07 Prothrombin Time With LAB 12/11/23 Complete INR 09:07 B-Type Natriuretic LAB 12/11/23 Complete Peptide 09:07 Chest 1vw RAD 12/11/23 Resulted 09:07 12 Lead Ekg Tracing- EKG 12/11/23 Logged Technical 09:07 Creatine Kinase, Total LAB 12/11/23 Complete 09:07 Troponin I High LAB 12/11/23 Complete Sensitivity 09:07 Urinalysis Profile LAB 12/11/23 Complete 09:07 Partial LAB 12/11/23 Complete Thromboplastin Time 09:07 Basic Metabolic Panel LAB 12/11/23 Complete 09:07 Troponin I High LAB 12/11/23 Complete Sensitivity 10:12 Magnesium LAB 12/11/23 In Process 10:12 Vital Signs Date Time Temp Pulse Resp B/P (MAP) Pulse Ox O2 Delivery O2 Flow Rate FiO2 12/11/23 10:37 98.4 64 18 137/55 100 Room Air* 0 21 12/11/23 09:30 98.4 65 18 155/46 100 Room Air* 0 21 12/11/23 09:03 98.4 67 20 158/63 100 Room Air 0 DX & DISP Disposition: Discharge Departure Impression: Primary Impression: Pedal edema Additional Impression: Chronic fatigue Condition: Stable Additional Instructions: FOLLOW-UP WITH PRIMARY CARE PROVIDER IN 1 TO 2 DAYS. TAKE MEDICATIONS DIRECTED HERE IN THE EMERGENCY ROOM. OKAY TO CONTINUE HOME MEDICATIONS UNLESS OTHERWISE DISCUSSED DURING YOUR VISIT IN THE EMERGENCY ROOM TODAY. RETURN TO YOUR NEAREST EMERGENCY ROOM IF SYMPTOMS WORSEN OR IF THERE IS NO IMPROVEMENT. CALL 911 IF YOU NEED IMMEDIATE ASSISTANCE. TAKE TYLENOL [id number] NEEDED AND IF NO CONTRAINDICATIONS ARE PRESENT. INCREASE ORAL HYDRATION. A WOUND CULTURE OR URINE CULTURE WAS ORDERED HERE IN THE EMERGENCY ROOM DEPARTMENT PLEASE FOLLOW-UP WITH PRIMARY CARE PROVIDER AND ADVISE THEM TO GET REPEAT PORTS FROM OUR FACILITY. IF YOU HAD ANY CRIS WRAP/SPLINTS THAT WERE APPLIED HERE, PLEASE DO NOT REMOVE THEM UNTIL YOU SEE YOUR PRIMARY CARE OR SPECIALTY. REFERRALS: Referrals: SHERLY CHA MD (PCP) BRIANNE KARIMI MD Time of Disposition: 11:05 HUI MCKINNEY MD Dec 11, 2023 11:06
--- NOTE | 2023-12-11 11:31 | EKG ---
[facility] Test Date: 2023-12-11 Test Time: 09:27:53 Pat Name: YO THOMAS Department: ED Room: Gender: F Copier Technician: [id number] : 1950 Requested By: HUI MCKINNEY Order Number: [id number] Reading MD: Marty Butterfield Measurements Intervals [place] Rate: 68 P: 49 FL: 155 QRS: 22 QRSD: 93 T: 20 QT: 428 QTc: 456 Interpretive Statements Sinus rhythm Low voltage, precordial leads Compared to ECG 08/26/2023 23:09:38 Low QRS voltage now present Left bundle-branch block no longer present Intraventricular conduction delay no longer present ST (T wave) deviation no longer present Electronically Signed On 12-13-2023 18:31:49 TEA AND SPICE SUPERVISOR by Marty Butterfield Please click the below link to view image of tracing.
[2023-12-11 11:42] VITALS: BP 130/57; PULSE 68; RESP 18; TEMP 98.4; O2SAT 98
== END 2023-12-11 11:45 | disposition home or self-care (01) ==
LOC: EDH 09:02
DX: R60.0 Localized edema (principal); R53.82 Chronic fatigue, unspecified; E11.9 Type 2 diabetes mellitus without complications; I10 Essential (primary) hypertension; G20.A1 Parkinson's disease without dyskinesia, without mention of fluctuations; Z79.82 Long term (current) use of aspirin; Z79.02 Long term (current) use of antithrombotics/antiplatelets; Z79.899 Other long term (current) drug therapy; Z86.73 Personal history of transient ischemic attack (TIA), and cerebral infarction without residual deficits; Z90.710 Acquired absence of both cervix and uterus
CPT/HCPCS: 36415; 71045; 80048; 81003; 82550; 83735; 83880; 84484; 85025; 85610; 85730; 93005

== ENCOUNTER 2024-01-25 06:24 | Emergency (ER) | payer OTHER, MEDICARE ==
[~2024-01-25] VITALS: Ht 157.5 cm; Wt 76.7 kg
--- NOTE | 2024-01-25 07:36 | ERN ---
General Chief Complaint: Lower Extremity Pain/Injury Stated Complaint: C/O PAIN WITH NUMBNESS TO LEFT LEG X 2 DAYS Time Seen by MD: 07:02 Source: patient History of Present Illness Initial Comments Patient is a 73-year-old female coming in to be evaluated for lower legs discomfort and numbness. Per patient this has been ongoing for several months was reexamined verbatim two days ago while in the shower. Patient is able to ambulate with some discomfort. Allergies: Coded Allergies: No Known Drug Allergies (Unverified Allergy, Unknown, 05/06/19) Home Meds Active Scripts Sucralfate (Carafate) 1 Gram Tablet, 1 GM PO DAILY, #15 TAB 0 Refills Prov:BLUE GARIBAY [facility] 08/28/23 Doxycycline Hyclate (Doxycycline Hyclate) 100 Mg Tablet, 100 MG PO BID, #10 TAB 0 Refills Prov:BLUE GARIBAY [employer] TESTER OPERATOR 08/28/23 Clopidogrel Bisulfate (Plavix) 75 Mg Tablet, 75 MG PO DAILY for 21 Days, #21 TAB Prov:DILSHAD ORTEGA 02/16/23 Atorvastatin Calcium (LIPITOR) 40 Mg Tablet, 40 MG PO HS, #30 TAB Prov:DILSHAD ORTEGA 02/16/23 Aspirin (ASPIRIN 81 MG ECTAB) 81 Mg Ectab, 81 MG PO DAILY, #30 TAB.EC Prov:DILSHAD ORTEGA 02/16/23 Reported Medications Fluoxetine HCl (Fluoxetine Dr) 90 Mg Capsule.dr, 90 MG PO DAILY, CAP 08/26/23 Levocetirizine Dihydrochloride (Levocetirizine Dihydrochloride) 5 Mg Tablet, 5 MG PO DAILY, TAB 08/26/23 Carbidopa/Levodopa (Carbidopa-Levodopa 25-100 Tab) 25 Mg-100 Mg Tablet, 1 EACH PO TID, TAB 08/26/23 Lisinopril (Lisinopril) 20 Mg Tablet, 20 MG PO DAILY, TAB 08/26/23 Past Medical History Past Medical History: Diabetes-Type II, Hypertension Medical History Other: PARKINSONS Past Surgical History: Hysterectomy, Pacer/AICD Surgical History Other: BACK Family History Family History: Negative Social History Social History: Negative, Lives alone Female( History) History: Not Applicable ROS Dictation CONSTITUTIONAL: No chills, no fever, no weakness, no diaphoresis, no malaise. HEAD/FACE: No signs of trauma. EENT: No eye pain, no blurred vision, no tearing, no double vision, no ear pain, no ear discharge, no nose pain, no nasal congestion, no throat pain, no throat swelling, no mouth pain. RESPIRATORY: No cough, no orthopnea, no SOB, no stridor, no wheezing. CARDIOVASCULAR: No chest pain, no edema, no palpitations, no syncope. GASTROINTESTINAL/ABDOMINAL: No abdominal pain, no constipation, no diarrhea, no nausea, no vomiting. GENITOURINARY: No abnormal discharge, no dysuria, no frequent urination, no hem aturia. No complaints of pain in the genitals. MUSCULOSKELETAL: No back pain, no gout, joint pain, no joint swelling, no muscl e pain, no muscle stiffness, no neck pain. INTEGUMENTARY: No change in color, no change in hair/nails, no dryness, no lesion, no lumps, no rash. NEUROLOGICAL/PSYCH: No anxiety, not depressed, no emotional problem, no headache, no numbness, no pre-existing deficit, no history of seizures, no tremors, no weakness. HEMATOLOGIC/LYMPHATIC: Not anemic, no history of blood clots, no apparent bleeding, no bruising, glands not swollen. All Systems Negative, Except as Noted. Physical Exam Physical Exam Dictation VITAL SIGNS: Reviewed. GENERAL APPEARANCE: Alert, oriented x3, no acute distress, obese. HEAD AND FACE: Non-traumatic. EYES: PERRL, pink conjunctivas, eyelid no trauma, anterior chamber clear. EARS: Pinnas intact and no signs of trauma or erythema. Ear canals clear and no discharge. TMs no erythema. NOSE: No discharge, no bleeding. OROPHARYNX: Mouth normal, teeth no caries, tongue pink. Pharynx clear, no erythema. Tonsils no exudates, no abscesses noted. Mucous membrane moist. NECK: Supple, non-tender, no thyromegaly, no masses, no JVD, no bruits. BREAST: Deferred. CHEST: No tenderness, no crepitus, no paradoxical movement, no retractions. LUNGS: Clear, well-ventilated, symmetric, no rales, no wheezing, no rhonchi, no stridor, good breath sounds bilaterally. HEART: Regular rate, regular rhythm, no murmur, no gallops. VASCULAR: No peripheral edema. ABDOMEN: Soft, positive bowel sounds, nondistended, no guarding, nontender, no rebound, no masses no hepatomegaly, no splenomegaly, no Graff's sign, no hernias. RECTAL: Deferred. GENITAL: Deferred. NEUROLOGICAL: Normal speech, gross motor function intact, gross sensory function intact. Two-point discrimination intact on lower extremities bilateral MUSCULOSKELETAL: Neck nontender, full range of motion, back nontender, full range of motion. EXTREMITIES: Nontender, full range of motion. SKIN: Color pink, dry, no turgor, no rash, no lacerations, no abrasions, no contusions. LYMPHATICS: Deferred. Stroke Patient?: No Results Laboratory and Microbiology Lab and Micro Result Laboratory Tests Test 01/25/24 07:20 01/25/24 09:23 White Blood Count 7.1 K/uL (4.8-10.8) Red Blood Count 4.12 MIL/uL (4.00-5.50) Hemoglobin 11.6 g/dL (12.0-16.0) L Hematocrit 36.6 % (36-48) Mean Corpuscular Volume 88.8 fL (79-99) Mean Corpuscular Hemoglobin 28.2 pg (27.0-33.0) Mean Corpuscular Hemoglobin Concent 31.7 g/dL (32.0-36.0) L Red Cell Distribution Width 13.1 % (11.0-15.5) Platelet Count 317 K/uL (130-400) Mean Platelet Volume 9.5 fL (7.5-10.5) Immature Granulocyte % (Auto) 0.3 % (0-1) Neutrophils (%) (Auto) 75.6 % (40.0-77.0) Lymphocytes (%) (Auto) 16.4 % (21.0-51.0) L Monocytes (%) (Auto) 5.2 % (3.0-13.0) Eosinophils (%) (Auto) 1.8 % (0.0-8.0) Basophils (%) (Auto) 0.7 % (0.0-5.0) Neutrophils # (Auto) 5.4 K/uL (1.8-7.7) Lymphocytes # (Auto) 1.2 K/uL (1.0-4.8) Monocytes # (Auto) 0.4 K/uL (0.1-1.0) Eosinophils # (Auto) 0.13 K/uL (0.00-0.70) Basophils # (Auto) 0.05 K/uL (0.00-0.20) Absolute Immature Granulocyte (auto 0.02 K/uL (0-1) Nucleated Red Blood Cells 0.0 % (0.0-0.19) Prothrombin Time 10.1 SEC (9.6-11.6) Prothromb Time International Ratio <= 0.93 (0.85-1.15) Activated Partial Thromboplast Time 26.9 SEC (26.3-35.5) Sodium Level 137 mmol/L (136-145) Potassium Level 3.9 mmol/L (3.5-5.1) Chloride Level 103 mmol/L (101-111) Carbon Dioxide Level 30 mmol/L (21-32) Blood Urea Nitrogen 15 mg/dL (7-18) Creatinine 0.8 mg/dL (0.5-1.0) Glomerular Filtration Rate Calc 78 mL/min (>90) Random Glucose 111 mg/dL (70-105) H Total Calcium 9.3 mg/dL (8.5-10.1) Magnesium Level 1.80 mg/dL (1.80-2.40) Total Creatine Kinase 113 U/L (21-232) Troponin I High Sensitivity 34 ng/L (4-50) B-Type Natriuretic Peptide 48 pg/mL (0-100) Urine Color LIGHT-YELLOW (YELLOW) Urine Appearance CLEAR (CLEAR) Urine pH 5.5 (5.0-8.0) Urine Specific [place] 1.016 (1.001-1.031) Urine Protein NEGATIVE mg/dL (NEGATIVE) Urine Glucose (UA) NEGATIVE mg/dL (NEGATIVE) Urine Ketones NEGATIVE mg/dL (NEGATIVE) Urine Occult Blood NEGATIVE (NEGATIVE) Urine Nitrate NEGATIVE (NEGATIVE) Urine Bilirubin NEGATIVE mg/dL (NEGATIVE) Urine Urobilinogen 0.2 mg/dL (0.2-1.0) Urine Leukocyte Esterase NEGATIVE Marcell/uL Labs Reviewed?: Yes EKG/XRAY/US/CT/MRI EKG Comment 01/25/2024 time 8:01 a.m. Ventricular rate [address] wave elevation or depression IN 152 X-RAY Comment [address] [place] [address] IMAGING REPORT Signed PATIENT: YO THOMAS MR#: [id number] : 1950 SEX: F AGE: 73 LOCATION: [facility] ORDER 0 STATUS: REG ER REPORT#: [id number] SERVICE 7 REASON: cp ORDERING PHYSICIAN: HUI MCKINNEY MD PROCEDURE: CXR1VW - CHEST 1VW CHEST 1VW HISTORY: Chest pain COMPARISON: December 11, 2023 FINDINGS: A frontal projection of the chest was obtained. No acute pulmonary infiltrates is seen. The heart is borderline enlarged. Degenerative changes are seen. Aortic calcifications are seen. IMPRESSION: 1. No acute pulmonary infiltrate is seen. DICTATED BY: JIMMIE CASTRO MD DATE: 01/25/24837 ELECTRONICALLY SIGNED BY: JIMMIE CASTRO MD DATE: 01/25/24839 MDM MDM: Differential diagnosis: Chronic neuropathy, chronic fatigue syndrome, Patient is a 73-year-old female coming in to be evaluated for left lower extremity numbness and pain. On physical exam two point discrimination on bilateral lower extremities was positive. Patient has a had multiple MRIs of head and neck. I advised her appropriate follow up with PCP 1-2 days to continue monitoring chronic symptoms. Patient will be discharged in stable condition. ED Course Orders Procedure Category Date Status Time Cbc With Differential LAB 01/25/24 Complete 07:28 Prothrombin Time With LAB 01/25/24 Complete INR 07:28 B-Type Natriuretic LAB 01/25/24 Complete Peptide 07:28 Chest 1vw RAD 01/25/24 Resulted 07:28 12 Lead Ekg Tracing- EKG 01/25/24 Complete Technical 07:28 Magnesium LAB 01/25/24 Complete 07:28 Creatine Kinase, Total LAB 01/25/24 Complete 07:28 Troponin I High LAB 01/25/24 Complete Sensitivity 07:28 Urinalysis Profile LAB 01/25/24 Complete 07:28 Partial LAB 01/25/24 Complete Thromboplastin Time 07:28 Basic Metabolic Panel LAB 01/25/24 Complete 07:28 0.9%Nacl 1000ml (Ns PHA 01/25/24 Complete 1000ml) 10:00 Current Medications Medications (Trade) Dose Ordered Sig/Lucho Route PRN Reason Start Time Stop Time Status Last Admin Dose Admin Sodium Chloride 1,000 ml @ 0 mls/hr ONCE ONCE IV 01/25/24 10:00 01/25/24 10:01 DC 01/25/24 10:12 Vital Signs Date Time Temp Pulse Resp B/P (MAP) Pulse Ox O2 Delivery O2 Flow Rate FiO2 01/25/24 10:16 97.9 66 16 98/69 100 Room Air* 0 21 01/25/24 07:47 97.9 65 16 124/59 100 Room Air* 0 21 01/25/24 06:28 97.9 72 20 125/58 100 Room Air DX & DISP Disposition: Discharge Departure Impression: Primary Impression: Chronic fatigue Additional Impressions: History of Parkinson's disease, Neuropathy Condition: Stable Additional Instructions: FOLLOW-UP WITH PRIMARY CARE PROVIDER IN 1 TO 2 DAYS. TAKE MEDICATIONS DIRECTED HERE IN THE EMERGENCY ROOM. OKAY TO CONTINUE HOME MEDICATIONS UNLESS OTHERWISE DISCUSSED DURING YOUR VISIT IN THE EMERGENCY ROOM TODAY. RETURN TO YOUR NEAREST EMERGENCY ROOM IF SYMPTOMS WORSEN OR IF THERE IS NO IMPROVEMENT. CALL 911 IF YOU NEED IMMEDIATE ASSISTANCE. TAKE TYLENOL [id number] NEEDED AND IF NO CONTRAINDICATIONS ARE PRESENT. INCREASE ORAL HYDRATION. A WOUND CULTURE OR URINE CULTURE WAS ORDERED HERE IN THE EMERGENCY ROOM DEPARTMENT PLEASE FOLLOW-UP WITH PRIMARY CARE PROVIDER AND ADVISE THEM TO GET REPEAT PORTS FROM OUR FACILITY. IF YOU HAD ANY CRIS WRAP/SPLINTS THAT WERE APPLIED HERE, PLEASE DO NOT REMOVE THEM UNTIL YOU SEE YOUR PRIMARY CARE OR SPECIALTY. Referrals: Referrals: SHERLY CHA MD (PCP) Time of Disposition: 10:46 HUI MCKINNEY MD Jan 25, 2024 07:36
[2024-01-25 07:56] LABS: BASOPHILS # (AUTO) 0.05 K/uL (0.00-0.20); BASOPHILS % (AUTO) 0.7 % (0.0-5.0); EOSINOPHILS # (AUTO) 0.13 K/uL (0.00-0.70); EOSINOPHILS % (AUTO) 1.8 % (0.0-8.0); HEMATOCRIT 36.6 % (36-48); IMMATURE GRANULOCYTE ABSOLUTE 0.02 K/uL (0-1); LYMPHOCYTES # (AUTO) 1.2 K/uL (1.0-4.8); LYMPHOCYTES % (AUTO) 16.4 % (21.0-51.0); MEAN CORPUSCULAR HEMOGLOBIN 28.2 pg (27.0-33.0); MEAN CORPUSCULAR HGB CONC 31.7 g/dL (32.0-36.0); MEAN CORPUSCULAR VOLUME 88.8 fL (79-99); MONOCYTES # (AUTO) 0.4 K/uL (0.1-1.0); MONOCYTES % (AUTO) 5.2 % (3.0-13.0); NEUTROPHILS # (AUTO) 5.4 K/uL (1.8-7.7); NEUTROPHILS % (AUTO) 75.6 % (40.0-77.0); PLATELET COUNT (AUTO) 317 K/uL (130-400); RED BLOOD CELL COUNT(AUTO) 4.12 MIL/uL (4.00-5.50); RED CELL DISTRIBUTION WIDTH 13.1 % (11.0-15.5); WHITE BLOOD COUNT (AUTO) 7.1 K/uL (4.8-10.8)
--- NOTE | 2024-01-25 08:17 | EKG ---
[facility] Test Date: 2024-01-25 Test Time: 08:01:14 Pat Name: YO THOMAS Department: ED Room: Gender: F Flow Floor Attendant: [id number] : 1950 Requested By: HUI MCKINNEY Order Number: [id number] Reading MD: Ady Jernigan Measurements Intervals [place] Rate: 63 P: -5 [place]: 152 QRS: 4 QRSD: 90 T: 18 QT: 405 QTc: 414 Interpretive Statements Sinus rhythm Nonspecific T abnormalities, anterior leads Compared to ECG 12/11/2023 09:27:53 T-wave abnormality now present Electronically Signed On 01-25-2024 19:37:46 STONEMASON APPRENTICE by Ady Jernigan Please click the below link to view image of tracing.
[2024-01-25 08:19] LABS: INR <= 0.93 (0.85-1.15); PROTHROMBIN TIME 10.1 SEC (9.6-11.6)
[2024-01-25 08:20] LABS: PARTIAL THROMBOPLASTIN TIME 26.9 SEC (26.3-35.5)
[2024-01-25 08:29] LABS: B-TYPE NATRIURETIC PEPTIDE 48 pg/mL (0-100)
[2024-01-25 08:36] LABS: CREATININE 0.8 mg/dL (0.5-1.0); POTASSIUM 3.9 mmol/L (3.5-5.1)
--- NOTE | 2024-01-25 08:40 | HMCIMG ---
CHEST 1VW HISTORY: Chest pain COMPARISON: December 11, 2023 FINDINGS: A frontal projection of the chest was obtained. No acute pulmonary infiltrates is seen. The heart is borderline enlarged. Degenerative changes are seen. Aortic calcifications are seen. IMPRESSION: 1. No acute pulmonary infiltrate is seen.
[2024-01-25 08:44] LABS: MAGNESIUM 1.8 mg/dL (1.80-2.40)
[2024-01-25 09:37] LABS: APPEARANCE,URINE CLEAR (CLEAR); BILIRUBIN,URINE NEGATIVE (NEGATIVE); COLOR,URINE LIGHT-YELLOW (YELLOW); GLUCOSE, URINE (UA) NEGATIVE (NEGATIVE); KETONES,URINE NEGATIVE (NEGATIVE); LEUKOCYTE ESTERASE ,URINE NEGATIVE Leu/uL (NEGATIVE); NITRATE,URINE NEGATIVE (NEGATIVE); OCCULT BLOOD,URINE NEGATIVE (NEGATIVE); PH,URINE 5.5 (5.0-8.0); PROTEIN,URINE NEGATIVE (NEGATIVE); UROBILINOGEN,URINE 0.2 mg/dL (0.2-1.0)
[2024-01-25 09:41] LABS: ADD UA MICROSCOPIC NO
[2024-01-25] MEDS: 0.9%NACL 1000ML 1,000 ML IV ONE (10:12)
[2024-01-25 11:47] VITALS: BP 131/62; PULSE 78; RESP 18; TEMP 97.8; O2SAT 98
== END 2024-01-25 11:56 | disposition home or self-care (01) ==
LOC: EDH 06:24
DX: R53.82 Chronic fatigue, unspecified (principal); E11.40 Type 2 diabetes mellitus with diabetic neuropathy, unspecified; G20.A1 Parkinson's disease without dyskinesia, without mention of fluctuations; I10 Essential (primary) hypertension; Z79.02 Long term (current) use of antithrombotics/antiplatelets; Z79.82 Long term (current) use of aspirin; Z79.899 Other long term (current) drug therapy; Z90.710 Acquired absence of both cervix and uterus; Z95.810 Presence of automatic (implantable) cardiac defibrillator
CPT/HCPCS: 99285; 96360; 71045; 96361; 82550; 83735; 84484; 80048; 83880; 85025; 85610; 85730; 81003; 36415; 93005; J7030

== ENCOUNTER 2024-03-23 11:47 | Emergency (ER) | payer OTHER, MEDICARE ==
[~2024-03-23] VITALS: Ht 157.5 cm; Wt 71.7 kg
[~2024-03-23 11:47] MED LIST changes: +ACET-2079 PO; +AMOX875T2 PO; +BENZ200C53 PO; +CARB-38 PO; +CLOP75TA32 PO; +FURO20TA4 PO; +PREG50CA64 PO
--- NOTE | 2024-03-23 12:36 | ERN ---
ED Note History of Present Illness Stated Complaint: BILATERAL LOWER EXTREMITY WEAKNESS Chief Complaint: Weakness Time Seen by MD: 11:53 Dictation: PATIENT IS A 73-YEAR-OLD FEMALE HERE WITH HER SON WITH COMPLAINTS OF SWELLING TO HER BILATERAL LOWER EXTREMITIES AND WEAKNESS TO HER LOWER EXTREMITIES FOR A VERY LONG TIME. NO FEVER NO CHILLS NO CHEST PAIN NO BACK PAIN. SHE DOES HAVE A HISTORY OF A PACEMAKER CAD DIABETES HYPERTENSION. PATIENT OF DR. RUIZ. 2+ EDEMA NOTED IN TRIAGE. Allergies: Coded Allergies: No Known Allergies (Unverified Allergy, Unknown, 02/22/24) No Known Drug Allergies (Unverified Allergy, Unknown, 05/06/19) Home Meds Active Scripts Sucralfate (Carafate) 1 Gram Tablet, 1 GM PO DAILY, #15 TAB 0 Refills Prov:BLUE GARIBAY WIRE WELDER 08/28/23 Doxycycline Hyclate (Doxycycline Hyclate) 100 Mg Tablet, 100 MG PO BID, #10 TAB 0 Refills Prov:BLUE GARIBAY WIRE WELDER 08/28/23 Acetaminophen with Codeine (Acetaminophen-Cod #3 Tablet) 300 Mg-30 Mg Tablet, 1 TAB PO Q6H PRN for Moderate pain, #10 TAB Prov:BEN AUSTIN DOOR FRAME BUILDER 08/14/23 Benzonatate (Benzonatate) 200 Mg Capsule, 200 MG PO TIDP PRN for COUGH, #28 CAP Prov:RAMÓN ARREOLA SCHOOL SPEECH LANGUAGE PATHOLOGIST 04/26/23 Amoxicillin (Amoxicillin) 875 Mg Tablet, 875 MG PO BID for 7 Days, #14 TAB Prov:RAMÓN ARREOLA SCHOOL SPEECH LANGUAGE PATHOLOGIST 04/26/23 Clopidogrel Bisulfate (Plavix) 75 Mg Tablet, 75 MG PO DAILY for 21 Days, #21 TAB Prov:DILSHAD ORTEGA 02/16/23 Atorvastatin Calcium (LIPITOR) 40 Mg Tablet, 40 MG PO HS, #30 TAB Prov:DILSHAD ORTEGA 02/16/23 Aspirin (ASPIRIN 81 MG ECTAB) 81 Mg Ectab, 81 MG PO DAILY, #30 TAB.EC Prov:DILSHAD ORTEGA 02/16/23 Reported Medications Fluoxetine HCl (Fluoxetine Dr) 90 Mg Capsule.dr, 90 MG PO DAILY, CAP 08/26/23 Levocetirizine Dihydrochloride (Levocetirizine Dihydrochloride) 5 Mg Tablet, 5 MG PO DAILY, TAB 7/21/24 Carbidopa/Levodopa (Carbidopa-Levodopa 25-100 Tab) 25 Mg-100 Mg Tablet, 1 EACH PO TID, TAB 08/26/23 Lisinopril (Lisinopril) 20 Mg Tablet, 20 MG PO DAILY, TAB 08/26/23 Pregabalin (Pregabalin) 50 Mg Capsule, 1 CAP PO TID 03/24/23 Lisinopril (Lisinopril) 20 Mg Tablet, 1 TAB PO DAILY 03/24/23 Furosemide (Furosemide) 20 Mg Tablet, 20 MG PO DAILY, TAB 08/20/22 Carbidopa/Levodopa (Carbidopa-Levo 25-100 mg Odt) 1 Each Tab.rapdis, 1 EACH PO TID, TAB 08/20/22 Atorvastatin Calcium (LIPITOR) 40 Mg Tablet, 40 MG PO DAILY, TAB 08/20/22 Clopidogrel Bisulfate (Clopidogrel) 75 Mg Tablet, 1 TAB PO DAILY 06/05/21 Past Medical History Past Medical History: Diabetes-Type II, Hypertension Additional Past Medical Hx: PARKINSONS Surgical History: Hysterectomy, Pacer/AICD Surgical History Other: BACK Family History: Negative Social History: Negative, Lives alone History: Not Applicable RN Note Reviewed/Agreed w/PFSH: Yes Review of System Dictation CONSTITUTIONAL: Negative except for HPI generalized weakness HEAD/FACE: Negative except for HPI EENT: Negative except for HPI RESPIRATORY: Negative except for HPI GASTROINTESTINAL/ABDOMINAL: Negative except for HPI GENITOURINARY: Negative except for HPI MUSCULOSKELETAL: Negative except for HPI weakness bilateral lower extremities INTEGUMENTARY: Negative except for HPI NEUROLOGICAL/PSYCH: Negative except for HPI HEMATOLOGIC/LYMPHATIC: Negative except for HPI All Systems Negative, Except as noted above. 13 point review of systems assessed and all negative except for above. Initial Vital Sign VS Vital Signs Date Time Temp Pulse Resp B/P (MAP) Pulse Ox O2 Delivery O2 Flow Rate FiO2 03/23/24 11:49 98.2 73 18 164/76 100 Room Air Physical Exam Dictation Vital Signs reviewed General Appearance: Alert, oriented x 3, patient is very weak and debilitated. Head and Face: non-traumatic. Eyes: PERRL, pink conjunctivas, eyelid no trauma, anterior chamber with arcus senilis. Ears: Pinnas intact and no signs of trauma or erythema ear canals clear and no discharge TM no erythema Nose: No discharge, no bleeding. Oropharynx: Mouth normal, tongue pink, pharynx clear,no erythema, tonsils no exudates, no abscesses noted, mucous membrane moist Neck: Supple, non-tender, no thyromegaly, no masses, no JVD, no bruits Breast:Deferred Chest:No tenderness, no crepitus, no paradoxical movement, no retractions Lungs:Clear, well-ventilated, symmetric, no rales, no wheezing, no rhonchi, no stridor, good breath sounds bilaterally Heart: Regular rate, regular rhythm, no murmur, no gallops Vascular: no peripheral edema, Abdomen: Soft, positive bowel sounds, nondistended, no guarding, nontender, no rebound, no masses no hepatomegaly, no splenomegaly, no Graff's sign, no hernias. Rectal: Deferred Genital: Deferred Neurological: Normal speech, motor function intact, sensory function intact Musculoskeletal: Neck nontender, full range of motion, back nontender, full range of motion, Extremities: nontender, full range of motion Skin: Color pink, dry, no turgor, no rash, no lacerations, no abrasions, no contusions. Lymphatic: Deferred Results (Laboratory/Radiology) Laboratory/Radiology Laboratory Tests Test 03/23/24 12:45 03/23/24 14:53 White Blood Count 7.4 K/uL (4.8-10.8) Red Blood Count 3.83 MIL/uL (4.00-5.50) L Hemoglobin 10.6 g/dL (12.0-16.0) L Hematocrit 33.3 % (36-48) L Mean Corpuscular Volume 86.9 fL (79-99) Mean Corpuscular Hemoglobin 27.7 pg (27.0-33.0) Mean Corpuscular Hemoglobin Concent 31.8 g/dL (32.0-36.0) L Red Cell Distribution Width 13.5 % (11.0-15.5) Platelet Count 282 K/uL (130-400) Mean Platelet Volume 9.5 fL (7.5-10.5) Immature Granulocyte % (Auto) 0.3 % (0-1) Neutrophils (%) (Auto) 67.6 % (40.0-77.0) Lymphocytes (%) (Auto) 23.6 % (21.0-51.0) Monocytes (%) (Auto) 5.3 % (3.0-13.0) Eosinophils (%) (Auto) 2.7 % (0.0-8.0) Basophils (%) (Auto) 0.5 % (0.0-5.0) Neutrophils # (Auto) 5.0 K/uL (1.8-7.7) Lymphocytes # (Auto) 1.7 K/uL (1.0-4.8) Monocytes # (Auto) 0.4 K/uL (0.1-1.0) Eosinophils # (Auto) 0.20 K/uL (0.00-0.70) Basophils # (Auto) 0.04 K/uL (0.00-0.20) Absolute Immature Granulocyte (auto 0.02 K/uL (0-1) Nucleated Red Blood Cells 0.0 % (0.0-0.19) Sodium Level 140 mmol/L (136-145) Potassium Level 4.4 mmol/L (3.5-5.1) Chloride Level 104 mmol/L (101-111) Carbon Dioxide Level 32 mmol/L (21-32) Blood Urea Nitrogen 13 mg/dL (7-18) Creatinine 0.6 mg/dL (0.5-1.0) Glomerular Filtration Rate Calc 95 mL/min (>90) Random Glucose 102 mg/dL (70-105) Total Calcium 9.2 mg/dL (8.5-10.1) Magnesium Level 1.90 mg/dL (1.80-2.40) Troponin I High Sensitivity 29 ng/L (4-50) B-Type Natriuretic Peptide 56 pg/mL (0-100) Urine Color LIGHT-YELLOW (YELLOW) Urine Appearance CLEAR (CLEAR) Urine pH 7.0 (5.0-8.0) Urine Specific [place] 1.017 (1.001-1.031) Urine Protein 10 mg/dL (NEGATIVE) H Urine Glucose (UA) NEGATIVE mg/dL (NEGATIVE) Urine Ketones NEGATIVE mg/dL (NEGATIVE) Urine Occult Blood NEGATIVE (NEGATIVE) Urine Nitrate NEGATIVE (NEGATIVE) Urine Bilirubin NEGATIVE mg/dL (NEGATIVE) Urine Urobilinogen 0.2 mg/dL (0.2-1.0) Urine Leukocyte Esterase NEGATIVE Marcell/uL Urine RBC 0-1 /HPF (0-1) Urine WBC 0-1 /HPF (0-1) Urine Squamous Epithelial Cells RARE /HPF (0-2) Urine Bacteria RARE /HPF (None Seen) INDICATION: SOB. HISTORY OF PACEMAKER TECHNIQUE: CHEST 1VW COMPARISON: 03/10/2024 FINDINGS AND IMPRESSION: Prominent bilateral interstitial markings which may represent bronchitis or vascular congestion in the proper clinical setting. Cardiac silhouette is within normal limits. Mild degenerative changes of the spine. The visualized upper abdomen appears unremarkable. Labs Reviewed?: Yes EKG Comment: V paced rhythm/heart rate 7 ED Course ED Course Orders Procedure Category Date Status Time Urinalysis Profile LAB 03/23/24 Complete 12:34 Cbc With Differential LAB 03/23/24 Complete 12:34 B-Type Natriuretic LAB 03/23/24 Complete Peptide 12:34 Chest 1vw RAD 03/23/24 Resulted 12:34 12 Lead Ekg Tracing- EKG 03/23/24 Resulted Technical 12:34 Magnesium LAB 03/23/24 Complete 12:34 Troponin I High LAB 03/23/24 Complete Sensitivity 12:34 Basic Metabolic Panel LAB 03/23/24 Complete 12:34 Vital Signs Date Time Temp Pulse Resp B/P (MAP) Pulse Ox O2 Delivery O2 Flow Rate FiO2 03/23/24 11:49 98.2 73 18 164/76 100 Room Air Workup is negative, EKG is a v paced rhythm with no elevated troponin. No electrolyte imbalance, no dehydration no anemia. Patient and family told to follow up with her primary care doctor for management. HEART Score Response (Comments) Value History: Low suspicion (0) 0 EKG: Repolarization changes 1 Risk Factors: 3+ risk factors (+2) 2 Initial Troponin: Normal limit (0) 0 Total 3 Medical Decision Making MDM MDM: Differential diagnosis: ACS/AMI/electrolyte i mbalance/dehydration/pneumonia/bronchitis electrolyte imbalance/dehydration/ Rationale: Tests considered and ordered secondary to shared decision making include: UTI EKG/labs/radiology Previous outside records reviewed: Old ER visits. Risk of complication and/or morbidity or mortality of patient management: None Medications-Per medication reconciliation Need for hospitalization: Patient does not meet criteria for hospitalization. No Need for emergency major/minor surgery: No There are no social concerns with this patient. Prescription drug management none Prescriptions will include symptomatic care Patient's prior external medical records from other ER visits were reviewed by me as indicated. Prior testing and results from previous visits were reviewed. Prior tests were taken into account with medical decision making and resource utilization, independent historian/historians were used to obtain complete medical history. I independently interpreted the test that were performed, results were reviewed by me and considered findings on radiology if ordered. Medical management and examination interpretation discussions were had by me with other qualified healthcare professionals as indicated for the patient's care. DX & DISP Disposition: Discharge Departure Impression: Primary Impression: Generalized weakness Additional Impression: Chronic anemia Condition: Stable Additional Instructions: Follow-up with primary care provider in 1 to 2 days. Take medications as directed here in the emergency room. Okay to continue home medications unless otherwise discussed during your visit in the emergency room today. Return to your nearest emergency room if symptoms worsen or if there is no improvement. Call 911 if you need immediate assistance. Take Tylenol or Motrin [id number] as needed and if no contraindications are present. Increase oral hydration. A wound culture or urine culture was ordered here in the emergency room department please follow-up with primary care provider and advise them to get repeat ports from our facility. If you had any Josias wrap/splints that were applied here, please do not remove them until you see your primary care or specialty. Diet and activity as tolerated., follow up with your primary care doctor on Sunday or Sunday for management. Referrals: SHERLY CHA MD (PCP) Time of Disposition: 15:35 I have reviewed the case, and I agree with, Diagnosis and Plan BEN AUSTIN NP Mar 23, 2024 12:36
[2024-03-23 12:54] LABS: BASOPHILS # (AUTO) 0.04 K/uL (0.00-0.20); BASOPHILS % (AUTO) 0.5 % (0.0-5.0); EOSINOPHILS % (AUTO) 2.7 % (0.0-8.0); HEMATOCRIT 33.3 % (36-48); IMMATURE GRANULOCYTE ABSOLUTE 0.02 K/uL (0-1); LYMPHOCYTES # (AUTO) 1.7 K/uL (1.0-4.8); LYMPHOCYTES % (AUTO) 23.6 % (21.0-51.0); MEAN CORPUSCULAR HEMOGLOBIN 27.7 pg (27.0-33.0); MEAN CORPUSCULAR HGB CONC 31.8 g/dL (32.0-36.0); MEAN CORPUSCULAR VOLUME 86.9 fL (79-99); MONOCYTES # (AUTO) 0.4 K/uL (0.1-1.0); MONOCYTES % (AUTO) 5.3 % (3.0-13.0); NEUTROPHILS % (AUTO) 67.6 % (40.0-77.0); PLATELET COUNT (AUTO) 282 K/uL (130-400); RED BLOOD CELL COUNT(AUTO) 3.83 MIL/uL (4.00-5.50); RED CELL DISTRIBUTION WIDTH 13.5 % (11.0-15.5); WHITE BLOOD COUNT (AUTO) 7.4 K/uL (4.8-10.8)
[2024-03-23 13:00] LABS: CREATININE 0.6 mg/dL (0.5-1.0); MAGNESIUM 1.9 mg/dL (1.80-2.40); POTASSIUM 4.4 mmol/L (3.5-5.1)
[2024-03-23 13:10] LABS: B-TYPE NATRIURETIC PEPTIDE 56 pg/mL (0-100)
--- NOTE | 2024-03-23 13:59 | EKG ---
[facility] Test Date: 2024-03-23 Test Time: 13:33:28 Pat Name: YO THOMAS Department: ED Room: Gender: F Payroll Specialist: [id number] : 1950 Requested By: BEN AUSTIN Order Number: [id number] Reading MD: Ray Hunter Measurements Intervals [place] Rate: 61 P: 42 [place]: 152 QRS: 16 QRSD: 102 T: 47 QT: 413 QTc: 415 Interpretive Statements Sinus with Ventricular-demand paced complexes Compared to ECG 03/10/2024 11:56:40 Sinus rhythm no longer present Electronically Signed On 03-23-2024 15:00:42 MERCHANDISE PRESENTATION MANAGER by Ray Hunter Please click the below link to view image of tracing.
--- NOTE | 2024-03-23 14:40 | HMCIMG ---
INDICATION: SOB. HISTORY OF PACEMAKER TECHNIQUE: CHEST 1VW COMPARISON: 03/10/2024 FINDINGS AND IMPRESSION: Prominent bilateral interstitial markings which may represent bronchitis or vascular congestion in the proper clinical setting. Cardiac silhouette is within normal limits. Mild degenerative changes of the spine. The visualized upper abdomen appears unremarkable.
[2024-03-23 15:04] LABS: ADD UA MICROSCOPIC YES; APPEARANCE,URINE CLEAR (CLEAR); BILIRUBIN,URINE NEGATIVE (NEGATIVE); COLOR,URINE LIGHT-YELLOW (YELLOW); GLUCOSE, URINE (UA) NEGATIVE (NEGATIVE); KETONES,URINE NEGATIVE (NEGATIVE); LEUKOCYTE ESTERASE ,URINE NEGATIVE Leu/uL (NEGATIVE); NITRATE,URINE NEGATIVE (NEGATIVE); OCCULT BLOOD,URINE NEGATIVE (NEGATIVE); PROTEIN,URINE 10 mg/dL (NEGATIVE); UROBILINOGEN,URINE 0.2 mg/dL (0.2-1.0)
[2024-03-23 15:06] LABS: BACTERIA,URINE RARE /HPF (None Seen); MUCUS,URINE RARE LPF (None Seen); RBC,URINE 0-1 /HPF (0-1); SQUAMOUS EPITHELIAL CELL,UR RARE /HPF (0-2); WBC,URINE 0-1 /HPF (0-1)
[2024-03-23 16:06] VITALS: BP 154/70; PULSE 76; RESP 16; TEMP 98.3; O2SAT 100
== END 2024-03-23 16:10 | disposition home or self-care (01) ==
LOC: EDH 11:47
DX: R53.1 Weakness (principal); D64.9 Anemia, unspecified; E11.9 Type 2 diabetes mellitus without complications; I10 Essential (primary) hypertension; Z79.02 Long term (current) use of antithrombotics/antiplatelets; Z79.82 Long term (current) use of aspirin; Z79.899 Other long term (current) drug therapy; Z90.710 Acquired absence of both cervix and uterus; Z95.810 Presence of automatic (implantable) cardiac defibrillator
CPT/HCPCS: 36415; 71045; 80048; 81001; 83735; 83880; 84484; 85025; 93005; 99285

== ENCOUNTER → 2024-06-02 | Outpatient (CLI) | payer OTHER, MEDICARE ==
[~2024-06-02] MED LIST changes: -ACET-2079 PO; -AMOX875T2 PO; -BENZ200C53 PO; -CARB-38 PO; -CLOP75TA32 PO; -DOXY100T2 PO; +LEVO-70 PO; +PANT40TA PO; +POTA-202 PO
[2024-06-02] MEDS: REGADENOSON 0.4 MG/5 ML PF SYG IVP ONE (11:40)
== END | disposition home or self-care (01) ==
LOC: SHCH 09:36
PROVIDERS: ATTEND Student in an Organized Health Care Education/Training Program
DX: R07.89 Other chest pain (principal); R06.00 Dyspnea, unspecified
CPT/HCPCS: 78452; 93017; J2785; A9500 ×2

== ENCOUNTER 2024-07-07 19:39 | Emergency (ER) | payer OTHER, MEDICAID ==
[~2024-07-07] VITALS: Ht 157.5 cm; Wt 81.6 kg
--- NOTE | 2024-07-07 20:11 | ERN ---
General Chief Complaint: Heartburn/GI Distress Stated Complaint: CHEST PAIN Time Seen by MD: 19:45 Source: patient History of Present Illness Initial Comments Patient coming to the hospital with pain that starts in her throat and goes all the way down subxiphoid. She said she went to her primary care physician yesterday for this treatment and was given a large pill to take which she took but she still is having the pain. No other associated symptoms no shortness of breath no chest pain no arm pain no nausea vomiting or diarrhea. She does say that her mouth feels with saliva every once in awhile. Timing/Duration: 1 week Allergies: Coded Allergies: No Known Allergies (Unverified Allergy, Unknown, 02/22/24) No Known Drug Allergies (Unverified Allergy, Unknown, 05/06/19) Home Meds Active Scripts Levofloxacin (Levofloxacin) 500 Mg Tablet, 1 TAB PO DAILY for 12 Days, #12 TAB 0 Refills Prov:DAVE BOSCH NP 05/06/24 Pantoprazole Sodium (Protonix) 40 Mg Tablet., 40 MG PO DAILY, #30 TAB Prov:DAVE BOSCH NP 05/06/24 Sucralfate (Carafate) 1 Gram Tablet, 1 GM PO DAILY, #15 TAB 0 Refills Prov:BLUE GARIBAY CNP 08/28/23 Clopidogrel Bisulfate (Plavix) 75 Mg Tablet, 75 MG PO DAILY for 21 Days, #21 TAB Prov:DILSHAD ORTEGA 02/16/23 Atorvastatin Calcium (LIPITOR) 40 Mg Tablet, 40 MG PO HS, #30 TAB Prov:DILSHAD ORTEGA 02/16/23 Aspirin (ASPIRIN 81 MG ECTAB) 81 Mg Ectab, 81 MG PO DAILY, #30 TAB.EC Prov:DILSHAD ORTEGA 02/16/23 Reported Medications Potassium Chloride (Potassium Chloride) 20 Meq Tab.er.prt, 1 TAB PO DAILY for 30 Days, #30 TAB 0 Refills 05/03/24 Fluoxetine HCl (Fluoxetine Dr) 90 Mg Capsule.dr, 90 MG PO DAILY, CAP 08/26/23 Levocetirizine Dihydrochloride (Levocetirizine Dihydrochloride) 5 Mg Tablet, 5 MG PO DAILY, TAB 08/26/23 Carbidopa/Levodopa (Carbidopa-Levodopa 25-100 Tab) 25 Mg-100 Mg Tablet, 1 EACH PO TID, TAB 08/26/23 Lisinopril (Lisinopril) 20 Mg Tablet, 20 MG PO DAILY, TAB 08/26/23 Pregabalin (Pregabalin) 50 Mg Capsule, 1 CAP PO TID 03/24/23 Furosemide (Furosemide) 20 Mg Tablet, 20 MG PO DAILY, TAB 08/20/22 Past Medical History Past Medical History: Diabetes-Type II, Hypertension Medical History Other: PARKINSON Past Surgical History: Hysterectomy Surgical History Other: BACK Family History Family History: Negative Social History Social History: Negative, Lives alone Female( History) History: Not Applicable Constitutional: (-) chills, (-) diaphoresis, (-) fever, (-) malaise, (-) weakness, (-) other documentation Respiratory: (-) cough, (-) orthopnea, (-) short of breath, (-) stridor, (-) wheezing, (-) other documentation Cardiovascular: (-) chest pain, (-) edema, (-) palpitations, (-) syncope, (-) dyspnea on exertion, (-) other documentation Gastrointestinal/Abdominal: (-) nausea, (-) vomiting, (-) diarrhea, (-) abdominal pain, (-) abdominal distention, (-) constipation, (-) rectal bleeding, (-) dark stool/melena, (-) other documentation Musculoskeletal: (-) Neck pain, (-) back pain, (-) Flank Pain, (-) joint pain, (-) joint swelling, (-) muscle pain, (-) muscle stiffness, (-) gout, (-) other documentation Skin: (-) laceration, (-) contusion, (-) abrasion, (-) abscess, (-) rash, (-) change in color, (-) change in hair, (-) change in nails, (-) diaphoresis, (-) dryness, (-) other documentation Neuro: (-) altered mental status, (-) headache, (-) syncope, (-) paralysis, (-) numbness, (-) seizure, (-) pre-existing deficit, (-) tremors, (-) weakness, (-) dizziness, (-) slurred speech, (-) vertigo, (-) other documentation Physical Exam General Appearance: (+) no apparent distress General Appearance comment Patient has a flat facies consistent with Parkinson's disease. Orientation: (+) alert, (+) oriented x 3 Head/Face Trauma: No Eye: bilateral eye normal inspection, bilateral eye PERRL, bilateral eye EOMI Ear, Nose, Throat: (+) hearing grossly normal, (+) normal ENT inspection, (+) moist mucous membraine Neck: (+) normal inspection, (+) supple Respiratory: (+) chest non-tender, (+) well ventilated Heart: (+) regular, (+) no gallop Gastrointestinal: (+) soft, (+) non-tender, (+) bowel sound present Results Laboratory and Microbiology Lab and Micro Result Laboratory Tests Test 07/07/24 20:11 White Blood Count 6.6 K/uL (4.8-10.8) Red Blood Count 3.18 MIL/uL (4.00-5.50) L Hemoglobin 9.0 g/dL (12.0-16.0) L Hematocrit 29.0 % (36-48) L Mean Corpuscular Volume 91.2 fL (79-99) Mean Corpuscular Hemoglobin 28.3 pg (27.0-33.0) Mean Corpuscular Hemoglobin Concent 31.0 g/dL (32.0-36.0) L Red Cell Distribution Width 14.1 % (11.0-15.5) Platelet Count 246 K/uL (130-400) Mean Platelet Volume 9.0 fL (7.5-10.5) Immature Granulocyte % (Auto) 0.3 % (0-1) Neutrophils (%) (Auto) 67.7 % (40.0-77.0) Lymphocytes (%) (Auto) 21.2 % (21.0-51.0) Monocytes (%) (Auto) 7.6 % (3.0-13.0) Eosinophils (%) (Auto) 2.4 % (0.0-8.0) Basophils (%) (Auto) 0.8 % (0.0-5.0) Neutrophils # (Auto) 4.5 K/uL (1.8-7.7) Lymphocytes # (Auto) 1.4 K/uL (1.0-4.8) Monocytes # (Auto) 0.5 K/uL (0.1-1.0) Eosinophils # (Auto) 0.16 K/uL (0.00-0.70) Basophils # (Auto) 0.05 K/uL (0.00-0.20) Absolute Immature Granulocyte (auto 0.02 K/uL (0-1) Nucleated Red Blood Cells 0.0 % (0.0-0.19) Red Blood Cell Morphology See comments Prothrombin Time 10.2 SEC (9.6-11.6) Prothromb Time International Ratio 0.96 (0.85-1.15) Activated Partial Thromboplast Time 26.6 SEC (26.3-35.5) Sodium Level 139 mmol/L (136-145) Potassium Level 3.6 mmol/L (3.5-5.1) Chloride Level 106 mmol/L (101-111) Carbon Dioxide Level 28 mmol/L (21-32) Blood Urea Nitrogen 18 mg/dL (7-18) Creatinine 0.8 mg/dL (0.5-1.0) Glomerular Filtration Rate Calc 78 mL/min (>90) Random Glucose 131 mg/dL (70-105) H Total Calcium 9.1 mg/dL (8.5-10.1) Troponin I High Sensitivity 27 ng/L (4-50) MDM Given the patient's age I will check her cardiac enzymes and do an EKG. In addition I will give her a GI cocktail. Patient's cardiac enzymes are negative. CBC is negative as well. GI cocktail relieve the patient of her symptoms. Chest x-ray is negative. There does seem to be an implanted device in the patient's left heart. I will discharge the patient from the ED with a prescription for Pepcid. ED Course Orders Procedure Category Date Status Time 12 Lead Ekg Tracing- EKG 07/07/24 Logged Technical 19:52 Cbc With Differential LAB 07/07/24 Complete 19:57 Basic Metabolic Panel LAB 07/07/24 Complete 19:57 Troponin I High LAB 07/07/24 Complete Sensitivity 19:57 Pt And Ptt LAB 07/07/24 Complete 19:57 Chest 1vw RAD 07/07/24 Taken 19:57 Lidocaine Hcl 2% PHA 07/07/24 Complete Viscous (Lidocaine Hcl 20:30 Mag/Alum/Simeth 30ml PHA 6/2/25 Complete (Maalox Plus 30ml) 20:30 Dicyclomine Hcl PHA 07/07/24 Complete (Bentyl 10mg/5ml 20:30 Current Medications Medications (Trade) Dose Ordered Sig/Lucho Route PRN Reason Start Time Stop Time Status Last Admin Dose Admin Al Hydroxide/Mg Hydroxide (MAALox PLUS 30ML) 30 ml ONCE ONCE PO 07/07/24 20:30 07/07/24 20:31 DC 07/07/24 20:30 Dicyclomine HCl (Bentyl 10mg/5ml Syrup) 10 mg ONCE ONCE PO 07/07/24 20:30 07/07/24 20:31 DC 07/07/24 20:30 Lidocaine HCl (Lidocaine HCl 2% Viscous) 10 ml ONCE ONCE PO 07/07/24 20:30 07/07/24 20:31 DC 07/07/24 20:30 Vital Signs Date Time Temp Pulse Resp B/P (MAP) Pulse Ox O2 Delivery O2 Flow Rate FiO2 07/07/24 19:49 99.0 64 20 175/73 Room Air DX & DISP Disposition: Discharge Departure Impression: Primary Impression: GERD (gastroesophageal reflux disease) Condition: Stable Assign Patient to: You have gastroesophageal reflux. I.e. heartburn. The medications that your doctor gave you need a few days to work in the meantime you can take the medications that I have prescribed for you and then also augment both of those with Tums. Please follow-up with your primary care physician if these do not help with your reflux disease. Scripts Famotidine (Pepcid AC) 10 Mg Tablet 1 TAB PO DAILY PRN for gerd for 30 Days, #30 TAB 0 Refills Prov: DANITZA SCHNEIDER MD 07/07/24 Referrals: SHERLY CHA MD (PCP) DANITZA SCHNEIDER MD Jul 07, 2024 20:11
[2024-07-07 20:22] LABS: BASOPHILS # (AUTO) 0.05 K/uL (0.00-0.20); BASOPHILS % (AUTO) 0.8 % (0.0-5.0); EOSINOPHILS # (AUTO) 0.16 K/uL (0.00-0.70); EOSINOPHILS % (AUTO) 2.4 % (0.0-8.0); IMMATURE GRANULOCYTE ABSOLUTE 0.02 K/uL (0-1); LYMPHOCYTES # (AUTO) 1.4 K/uL (1.0-4.8); LYMPHOCYTES % (AUTO) 21.2 % (21.0-51.0); MEAN CORPUSCULAR HEMOGLOBIN 28.3 pg (27.0-33.0); MEAN CORPUSCULAR VOLUME 91.2 fL (79-99); MONOCYTES # (AUTO) 0.5 K/uL (0.1-1.0); MONOCYTES % (AUTO) 7.6 % (3.0-13.0); NEUTROPHILS # (AUTO) 4.5 K/uL (1.8-7.7); NEUTROPHILS % (AUTO) 67.7 % (40.0-77.0); PLATELET COUNT (AUTO) 246 K/uL (130-400); RED BLOOD CELL COUNT(AUTO) 3.18 MIL/uL (4.00-5.50); RED CELL DISTRIBUTION WIDTH 14.1 % (11.0-15.5); WHITE BLOOD COUNT (AUTO) 6.6 K/uL (4.8-10.8)
[2024-07-07] MEDS: DICYCLOMINE HCL 10 MG/5 ML ML PO ONE (20:30)
[2024-07-07] MEDS: LIDOCAINE HCL 2% VISCOUS 15 ML UDCUP PO ONE (20:30)
[2024-07-07] MEDS: MAG/ALUM/SIMETH 30 ML UDCUP PO ONE (20:30)
[2024-07-07 20:32] LABS: CREATININE 0.8 mg/dL (0.5-1.0); INR 0.96 (0.85-1.15); POTASSIUM 3.6 mmol/L (3.5-5.1); PROTHROMBIN TIME 10.2 SEC (9.6-11.6)
[2024-07-07 20:34] LABS: PARTIAL THROMBOPLASTIN TIME 26.6 SEC (26.3-35.5)
[2024-07-07] MEDS ORDERED: FAMO10TA39 PO (21:03)
[2024-07-07 21:18] VITALS: BP 157/75; PULSE 65; RESP 17; TEMP 98.4; O2SAT 97
--- NOTE | 2024-07-07 21:55 | HMCIMG ---
INDICATION: EPIGASTRIC PAIN TECHNIQUE: CHEST 1VW COMPARISON: 04/24/2024 FINDINGS AND IMPRESSION: Prominent bilateral interstitial markings which may represent bronchitis or vascular congestion in the proper clinical setting. Cardiac silhouette is within normal limits. Mild degenerative changes of the spine. The visualized upper abdomen appears unremarkable.
--- NOTE | 2024-07-08 06:31 | EKG ---
[facility] Test Date: 2024-07-07 Test Time: 19:45:23 Pat Name: YO THOMAS Department: ED Room: Gender: F Press Helper: [phone] : 1950 Requested By: DANITZA SCHNEIDER Order Number: [id number] Reading MD: Ady Jernigan Measurements Intervals [place] Rate: 73 P: 54 [place]: 150 QRS: 5 QRSD: 94 T: 24 QT: 380 QTc: 420 Interpretive Statements Sinus rhythm Atrial premature complex Low voltage, precordial leads Compared to ECG 05/01/2024 20:25:24 Atrial premature complex(es) now present Low QRS voltage now present Electronically Signed On 07-08-2024 19:35:02 CDT by Ady Jernigan Please click the below link to view image of tracing.
== END 2024-07-07 21:19 | disposition home or self-care (01) ==
LOC: EDH 19:39
DX: K21.9 Gastro-esophageal reflux disease without esophagitis (principal); E11.9 Type 2 diabetes mellitus without complications; I10 Essential (primary) hypertension; Z79.02 Long term (current) use of antithrombotics/antiplatelets; Z79.82 Long term (current) use of aspirin; Z79.899 Other long term (current) drug therapy; Z90.710 Acquired absence of both cervix and uterus
CPT/HCPCS: 36415; 71045; 80048; 84484; 85025; 85610; 85730; 93005; 99284; 99285

== ENCOUNTER 2024-12-18 19:59 | Emergency (ER) | payer OTHER, MEDICARE ==
[~2024-12-18] VITALS: Ht 157.5 cm; Wt 68.9 kg
[~2024-12-18 19:59] MED LIST changes: -AEC81 PO; +DAPA10TA PO; -LEVO-70 PO; -POTA-202 PO; +POTA10CA95 PO
[2024-12-18 20:31] LABS: IMMATURE GRANULOCYTE ABSOLUTE 0.03 K/uL (0-1); NUCLEATED RED BLOOD CELLS 0.0 % (0.0-0.19); PLATELET COUNT (AUTO) 291 K/uL (130-400); RED BLOOD CELL COUNT(AUTO) 3.42 MIL/uL (4.00-5.50); RED CELL DISTRIBUTION WIDTH 15.0 % (11.0-15.5); WHITE BLOOD COUNT (AUTO) 8.8 K/uL (4.8-10.8)
[2024-12-18 20:40] LABS: CREATININE 0.6 mg/dL (0.5-1.0); GLOMERULAR FILTR. RATE CALC 95.0 mL/min (>90); GLUCOSE,RANDOM 110.0 mg/dL (70-105); SODIUM SERUM 138.0 mmol/L (136-145); UREA NITROGEN, BLOOD 20.0 mg/dL (7-18)
[2024-12-18 20:58] LABS: COVID19 (SARS ANTIGEN RAPID) PRESUMPTIVE NEGATIVE (NEGATIVE); INFLUENZA TYPE A Negative For Type A (NEGATIVE); INFLUENZA TYPE B Negative For Type B (NEGATIVE)
[2024-12-18] MEDS ORDERED: GUAI120015 PO (21:12)
[2024-12-18] MEDS ORDERED: ACET-66 PO (21:12)
[2024-12-18] MEDS ORDERED: PERM60CR21 TP (21:12)
--- NOTE | 2024-12-18 21:14 | ERN ---
General Chief Complaint: Flu Symptoms Stated Complaint: FEVER, CHILLS, WEAKNESS Time Seen by MD: 20:13 History of Present Illness Initial Comments 74-year-old female here for evaluation of subjective fever, chills, weakness since this morning. Patient did not take any medications prior to arrival. States that she has been having generalized weakness and thus decided to come to the emergency room for evaluation. No vomiting or diarrhea. No urinary symptoms. Allergies: Coded Allergies: No Known Allergies (Unverified Allergy, Unknown, 02/22/24) No Known Drug Allergies (Unverified Allergy, Unknown, 05/06/19) Home Meds Active Scripts Pantoprazole Sodium (Protonix) 40 Mg Tablet.dr, 40 MG PO DAILY, #30 TAB Prov:DAVE BOSCH 05/06/24 Sucralfate (Carafate) 1 Gram Tablet, 1 GM PO DAILY, #15 TAB 0 Refills Prov:BLUE GARIBAY [employer]ING [employer]RAFT[employer]ERSON 08/28/23 Clopidogrel Bisulfate (Plavix) 75 Mg Tablet, 75 MG PO DAILY for 21 Days, #21 TAB Prov:DILSHAD ORTEGA PAC 02/16/23 Atorvastatin Calcium (LIPITOR) 40 Mg Tablet, 40 MG PO HS, #30 TAB Prov:DILSHAD ORTEGA PAC 02/16/23 Reported Medications Potassium Chloride (Potassium Chloride) 10 Meq Capsule.er, 1 CAP PO DAILY for 30 Days, #30 CAP 0 Refills 09/16/24 Dapagliflozin Propanediol (Farxiga) 10 Mg Tablet, 1 TAB PO DAILY for 30 Days, #30 TAB 0 Refills 09/16/24 Fluoxetine HCl (Fluoxetine Dr) 90 Mg Capsule.dr, 90 MG PO DAILY, CAP 08/26/23 Levocetirizine Dihydrochloride (Levocetirizine Dihydrochloride) 5 Mg Tablet, 5 MG PO DAILY, TAB 08/26/23 Carbidopa/Levodopa (Carbidopa-Levodopa 25-100 Tab) 25 Mg-100 Mg Tablet, 1 EACH PO TID, TAB 08/26/23 Lisinopril (Lisinopril) 20 Mg Tablet, 20 MG PO DAILY, TAB 08/26/23 Pregabalin (Pregabalin) 50 Mg Capsule, 1 CAP PO TID 03/24/23 Furosemide (Furosemide) 20 Mg Tablet, 20 MG PO DAILY, TAB 08/20/22 Past Medical History Past Medical History: Diabetes-Type II, High Cholesterol, Hypertension Medical History Other: [place] Past Surgical History: Hysterectomy, Pacer/AICD Surgical History Other: LOWER BACK SX, CATARACTS Family History Family History: Negative Social History Social History: Negative, Lives alone Female( History) History: Not Applicable Constitutional: (+) chills, (+) fever Physical Exam General Appearance: (+) no apparent distress Orientation: (+) alert, (+) oriented x 3 Face Comment Bugs/lice noted in hair Eye: bilateral eye normal inspection, bilateral eye PERRL Ear, Nose, Throat: (+) hearing grossly normal, (+) normal ENT inspection Neck: (+) normal inspection, (+) supple Respiratory: (+) chest non-tender, (+) lungs clear Heart: (+) regular; (-) murmur Gastrointestinal: (+) soft, (+) non-tender Results Laboratory and Microbiology Lab and Micro Result Laboratory Tests Test 12/18/24 20:20 12/18/24 20:33 White Blood Count 8.8 K/uL (4.8-10.8) Red Blood Count 3.42 MIL/uL (4.00-5.50) L Hemoglobin 9.2 g/dL (12.0-16.0) L Hematocrit 30.0 % (36-48) L Mean Corpuscular Volume 87.7 fL (79-99) Mean Corpuscular Hemoglobin 26.9 pg (27.0-33.0) L Mean Corpuscular Hemoglobin Concent 30.7 g/dL (32.0-36.0) L Red Cell Distribution Width 15.0 % (11.0-15.5) Platelet Count 291 K/uL (130-400) Mean Platelet Volume 9.3 fL (7.5-10.5) Immature Granulocyte % (Auto) 0.3 % (0-1) Neutrophils (%) (Auto) 74.9 % (40.0-77.0) Lymphocytes (%) (Auto) 15.0 % (21.0-51.0) L Monocytes (%) (Auto) 8.1 % (3.0-13.0) Eosinophils (%) (Auto) 1.1 % (0.0-8.0) Basophils (%) (Auto) 0.6 % (0.0-5.0) Neutrophils # (Auto) 6.6 K/uL (1.8-7.7) Lymphocytes # (Auto) 1.3 K/uL (1.0-4.8) Monocytes # (Auto) 0.7 K/uL (0.1-1.0) Eosinophils # (Auto) 0.10 K/uL (0.00-0.70) Basophils # (Auto) 0.05 K/uL (0.00-0.20) Absolute Immature Granulocyte (auto 0.03 K/uL (0-1) Nucleated Red Blood Cells 0.0 % (0.0-0.19) Red Blood Cell Morphology See comments Sodium Level 138 mmol/L (136-145) Potassium Level 3.6 mmol/L (3.5-5.1) Chloride Level 103 mmol/L (101-111) Carbon Dioxide Level 28 mmol/L (21-32) Blood Urea Nitrogen 20 mg/dL (7-18) H Creatinine 0.6 mg/dL (0.5-1.0) Glomerular Filtration Rate Calc 95 mL/min (>90) Random Glucose 110 mg/dL (70-105) H Lactic Acid Level 1.2 mmol/L (0.8-2.5) Total Calcium 8.8 mg/dL (8.5-10.1) Influenza Type A Antigen Negative For Type A Influenza Type B Antigen Negative For Type B SARS-CoV-2 Antigen (Rapid) PRESUMPTIVE NEGATIVE MDM MDM: URI, allergic rhinitis DIFFERENTIAL DIAGNOSIS: RATIONALE: TESTS CONSIDERED AND ORDERED SECONDARY TO SHARED DECISION MAKING INCLUDE: PREVIOUS OUTSIDE RECORDS REVIEWED: OLD ER VISITS. RISK OF COMPLICATION AND/OR MORBIDITY OR MORTALITY OF PATIENT MANAGEMENT: NONE MEDICATIONS-PER MEDICATION RECONCILIATION NEED FOR HOSPITALIZATION: PATIENT DOES NOT MEET CRITERIA FOR HOSPITALIZATION. NEED FOR EMERGENCY MAJOR/MINOR SURGERY: NO THERE ARE NO SOCIAL CONCERNS WITH THIS PATIENT. PRESCRIPTION DRUG MANAGEMENT PRESCRIPTIONS WILL INCLUDE SYMPTOMATIC CARE PATIENT'S PRIOR EXTERNAL MEDICAL RECORDS FROM OTHER ER VISITS WERE REVIEWED BY ME INDICATED. PRIOR TESTING AND RESULTS FROM PREVIOUS VISITS WERE REVIEWED. PRIOR TESTS WERE TAKEN INTO ACCOUNT WITH MEDICAL DECISION MAKING AND RESOURCE UTILIZATION, INDEPENDENT HISTORIAN/HISTORIANS WERE USED TO OBTAIN COMPLETE MEDICAL HISTORY. I INDEPENDENTLY INTERPRETED THE TEST THAT WERE PERFORMED, RESULTS WERE REVIEWED BY ME AND CONSIDERED FINDINGS ON RADIOLOGY IF ORDERED. MEDICAL MANAGEMENT AND EXAMINATION INTERPRETATION DISCUSSIONS WERE HAD BY ME WITH OTHER QUALIFIED HEALTHCARE PROFESSIONALS INDICATED FOR THE PATIENT'S CARE. ED Course Orders Procedure Category Date Status Time Cbc With Differential LAB 12/18/24 Complete 20:14 Basic Metabolic Panel LAB 12/18/24 Complete 20:14 Influenza Type A & B, LAB 12/18/24 Complete Rapid 20:14 Covid19 (Sars Antigen LAB 12/18/24 Complete Rapid) 20:14 Lactic Acid LAB 12/18/24 Complete 20:14 Ketorolac PHA 12/18/24 In Process Tromethamine 15mg/Ml 21:30 Acetaminophen 500mg PHA 12/18/24 In Process Tab (Tylenol 500mg T 21:30 Current Medications Medications (Trade) Dose Ordered Sig/Lucho Route PRN Reason Start Time Stop Time Status Last Admin Dose Admin Acetaminophen (TYLenol 500MG TAB) 1,000 mg ONCE ONCE PO 12/18/24 21:30 12/18/24 21:31 Ketorolac Tromethamine (toRADol) 15 mg ONCE ONCE IM 12/18/24 21:30 12/18/24 21:31 Vital Signs Date Time Temp Pulse Resp B/P (MAP) Pulse Ox O2 Delivery O2 Flow Rate FiO2 12/18/24 20:41 99.9 68 15 147/54 100 Room Air* 0 21 12/18/24 20:01 99.3 70 19 165/74 100 Room Air 0 DX & DISP Disposition: Discharge Departure Impression: Primary Impression: Lice Additional Impression: Acute URI Condition: Stable Scripts Acetaminophen (Tylenol) 500 Mg Tab 500 MG PO Q6HPRN PRN for PAIN for 7 Days, #28 TAB Prov: TESHA FARRIS MD 12/18/24 Guaifenesin (Mucinex) 1,200 Mg Tbmp.12hr 1 TAB PO BID for cough for 15 Days, #30 TAB 0 Refills Prov: TESHA FARRIS MD 12/18/24 Permethrin (Permethrin) 5 % Cream..g. 1 APPL TP ONCE for 1 Day, #60 GM 0 Refills massage into skin from head to soles of feet one time, leave on for 8-14 hours then remove by thorough washing Prov: TESHA FARRIS MD 12/18/24 Referrals: RUDY ESTRELLA M.D. (PCP) TESHA FARRIS MD Dec 18, 2024 21:14
[2024-12-18 21:18] VITALS: TEMP 99.9
[2024-12-18 21:40] VITALS: BP 166/61; PULSE 74; RESP 16; TEMP 99.2; O2SAT 99
== END 2024-12-18 21:51 | disposition home or self-care (01) ==
LOC: EDH 19:59
DX: B85.2 Pediculosis, unspecified (principal); J06.9 Acute upper respiratory infection, unspecified; E11.9 Type 2 diabetes mellitus without complications; I10 Essential (primary) hypertension; E78.00 Pure hypercholesterolemia, unspecified; Z79.02 Long term (current) use of antithrombotics/antiplatelets; Z79.84 Long term (current) use of oral hypoglycemic drugs; Z79.899 Other long term (current) drug therapy; Z90.710 Acquired absence of both cervix and uterus; Z95.810 Presence of automatic (implantable) cardiac defibrillator; Z20.822 Contact with and (suspected) exposure to COVID-19
CPT/HCPCS: 99283; 87426; 80048; 85025; 87804 ×2; 83605; 36415; 96372; J1885